=== PATIENT | female | born 1940 | race Caucasian/White ===

== ENCOUNTER 2024-05-27 14:56 | Inpatient (IN) | payer MEDICARE, OTHER, SELFPAY ==
[2024-05-27] VITALS (8 sets, daily range): BP systolic 114–163; BP diastolic 71–94; BMI 32.4
[2024-05-27 09:11] LABS: % Basophils 0.5 % (0-2); % Eosinophils 2.6 % (0-6); % Immature Granulocytes 0.5 % (0-0.5); % Lymphocytes 14.3 % (20.5-51.1); % Monocytes 10.6 % (1.7-9.3); % Neutrophils 71.5 % (42.2-75.2); Absolute Eosinophils 0.2 10^3/uL (0-0.7); Absolute Lymphocytes 1.1 10^3/uL (1.2-3.4); Absolute Monocytes 0.8 10^3/uL (0.1-0.6); Absolute Neutrophils 5.3 10^3/uL (1.4-6.5); Hematocrit 40.3 % (37.0-47.0); Hemoglobin 13.1 g/dL (12.0-16.0); Mean Corp Hgb Conc. 32.5 g/dL (33.0-37.0); Mean Corpuscular Hgb 29.3 pg (27.0-31.0); Mean Corpuscular Volume 90.2 fL (81.0-99.0); Mean Platelet Volume 10.4 fL (7.4-10.4); Nucleated Red Blood Cells % 0 %; Platelet Count 299 10^3/uL (130-400); Red Blood Cell Count 4.47 10^6/uL (4.20-5.40); Red Cell Dist. Width 14.4 % (11.5-14.5); White Blood Cell Count 7.4 10^3/uL (4.8-10.8)
--- NOTE | 2024-05-27 09:15 | ED.GENMED ---
History of Present Illness
<MARIAH Leung - Last Filed: 05/27/24 14:24>
General
Chief Complaint: Chest Problem
Source: patient
Exam Limitations: none
Time Seen by Provider: 05/27/24 09:06
Nursing documentation reviewed up to this point in time: agreed with
History of Present Illness
History of Present Illness:
Patient is a 83-year-old female from [facility] who presents today complaining left-sided chest pain that woke her up prior to arrival. Lasted for 20 minutes. She complained of pain to the left chest and left back. She does have history of
pacemaker AICD. Nurse notes and triage that patient reported the last time this happened this was a loose wire but she does not state this to me.
Patient had no associated shortness of breath with this. She denied nausea vomiting sweating.
She currently is asymptomatic.
Past History
<MARIAH Leung - Last Filed: 05/27/24 14:24>
Past History
ED Past Medical History: Arrthythmia
ED Past Surgical History: None
Social History
Tobacco: Non-smoker
Review of Systems
<MARIAH Leung - Last Filed: 05/27/24 14:24>
Review of Systems
Allergies reviewed?: Yes
All Other Systems: ROS reviewed and negative except as documented in HPI and ROS
Constitutional: Reports no symptoms; Denies fever, fatigue or chills
Respiratory: Denies trouble breathing
Cardiac: Reports chest pain; Denies diaphoresis, palpitations or syncope
ABD/GI: Reports no symptoms
: Reports no symptoms
Musculoskeletal: Reports no symptoms
Skin: Reports no symptoms
Psychiatric: Reports no symptoms
Phy Exam
<MARIAH Leung - Last Filed: 05/27/24 14:24>
General Physical Exam
General Presentation: no apparent distress
General age: appears stated age
General Skin: warm and dry
General Habitus: normal
General Mental: alert
General Hydration: appears well hydrated
Cardiovascular Exam
Cardiovascular Exam: regular rate/rhythm, no murmur and normal peripheral pulses
Pulmonary Exam
Pulmonary Exam: lungs clear and no respiratory distress
Neurological Exam
Neurological Exam: alert and oriented x3
Course
<MRAIAH Leung - Last Filed: 05/27/24 14:24>
Orders/Labs/Results
Orders:
Orders
05/27/24 08:52
Electrocardiogram (*1) Urgent
Reason for Study: Chest Pain
05/27/24 08:53
EKG- Treatment ONCE
05/27/24 08:54
COVID-19 Antigen Urgent
Source: Nasal Swab
Complete Blood Count/With Diff Urgent
Troponin I Urgent
Influenza A+B Rapid Molecular Urgent
OFELIA Source: Nasal Swab
Specimen Description:
05/27/24 09:15
Chest [CR Chest - 2 Views ] Urgent
Comment:
Reason For Exam: cp
05/27/24 09:52
Comprehensive Metabolic Panel Urgent
05/27/24 12:12
Electrocardiogram (*1) Stat
Reason for Study: Other
Other Reason for Exam: chest pain
EKG- Treatment ONCE
05/27/24 12:59
Troponin I Urgent
05/27/24 13:54
Alprazolam [Xanax] 0.25 mg PO NOW STA
Abnormal Lab Results
05/27/24 05/27/24
08:54 09:52
MCHC 32.5 L g/dL
(33.0-37.0)
Absolute Lymphs (auto) 1.1 L 10^3/uL
(1.2-3.4)
Absolute Monos (auto) 0.8 H 10^3/uL
(0.1-0.6)
Lymphocytes % 14.3 L %
(20.5-51.1)
Monocytes % 10.6 H %
(1.7-9.3)
BUN 20 H mg/dl
(7-17)
05/27/24 08:54
05/27/24 09:52
Vital Signs
Initial and Last Documented VS:
Initial Vital Signs
Temp Pulse Resp BP Pulse Ox
98.0 F 87 16 153/82 96
05/27/24 08:41 05/27/24 08:41 05/27/24 08:41 05/27/24 08:41 05/27/24 08:41
Last Documented Vital Signs
Temp Pulse Resp BP Pulse Ox
98.0 F 89 30 153/82 92
05/27/24 08:41 05/27/24 14:00 05/27/24 14:00 05/27/24 08:41 05/27/24 14:00
<Leonard Pascual, DO - Last Filed: 05/27/24 14:22>
Orders/Labs/Results
Orders:
Orders
05/27/24 08:52
Electrocardiogram (*1) Urgent
Reason for Study: Chest Pain
05/27/24 08:53
EKG- Treatment ONCE
05/27/24 08:54
COVID-19 Antigen Urgent
Source: Nasal Swab
Complete Blood Count/With Diff Urgent
Troponin I Urgent
Influenza A+B Rapid Molecular Urgent
OFELIA Source: Nasal Swab
Specimen Description:
05/27/24 09:15
Chest [CR Chest - 2 Views ] Urgent
Comment:
Reason For Exam: cp
05/27/24 09:52
Comprehensive Metabolic Panel Urgent
05/27/24 12:12
Electrocardiogram (*1) Stat
Reason for Study: Other
Other Reason for Exam: chest pain
EKG- Treatment ONCE
05/27/24 12:59
Troponin I Urgent
05/27/24 13:54
Alprazolam [Xanax] 0.25 mg PO NOW STA
Abnormal Lab Results
05/27/24 05/27/24
08:54 09:52
MCHC 32.5 L g/dL
(33.0-37.0)
Absolute Lymphs (auto) 1.1 L 10^3/uL
(1.2-3.4)
Absolute Monos (auto) 0.8 H 10^3/uL
(0.1-0.6)
Lymphocytes % 14.3 L %
(20.5-51.1)
Monocytes % 10.6 H %
(1.7-9.3)
BUN 20 H mg/dl
(7-17)
05/27/24 08:54
05/27/24 09:52
Vital Signs
Initial and Last Documented VS:
Initial Vital Signs
Temp Pulse Resp BP Pulse Ox
98.0 F 87 16 153/82 96
05/27/24 08:41 05/27/24 08:41 05/27/24 08:41 05/27/24 08:41 05/27/24 08:41
Last Documented Vital Signs
Temp Pulse Resp BP Pulse Ox
98.0 F 89 30 153/82 92
05/27/24 08:41 05/27/24 14:00 05/27/24 14:00 05/27/24 08:41 05/27/24 14:00
<MARIAH Leung - Last Filed: 05/27/24 14:24>
*Radiology
Radiology exam reviewed: radiology read reviewed
*Pulse Oximetry
Patient hypoxic: no
*EKG
Interpreted by ED Provider?: Yes
Heart Rate: 82
Rate: normal
Rhythm: sinus
Ischemia: non-specific ST changes
ED Attending Note
<MARIAH Leung - Last Filed: 05/27/24 14:24>
-
Portions of this chart may have been created with voice recognition software.� Occasional wrong word or��sound alike� substitutions may have occurred due to the inherent limitations of voice recognition software.
<Leonard Pascual DO - Last Filed: 05/27/24 14:22>
ED Attending Note
Patient seen and examined by attending physician: Yes
I performed the substantive portion of visit, reviewed & personally made and approve the management plan that is documented in note by myself or LOKI.: Yes
ED Attending Note:
I evaluated the patient bedside. The patient is certain that she was shocked by her AICD as she points to the left anterior chest wall. She has never been shocked before. 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
based in [facility] that was placed at [facility]. Therefore unable to interrogate at this time. Hemodynamically stable.
Discharge Plan
Departure
Patient Disposition: Admit
Date of Disposition: 05/27/24
Time of Disposition: 14:19
Admit to: Telemetry
Admit to doctor: hospitalist
Presentation/result/management discussed w/ accepting MD/DO: Hospitalist
Patient with high blood pressure during this ER visit?: Yes
Condition: Fair
Covid-19: Not Applicable
Discharge Problem:
Chest pain, AICD discharge
Prescriptions:
No Action
carvedilol 6.25 MG tablet
3.125 mg PO BID
aspirin 81 MG tablet,delayed release (DR/EC)
81 mg PO DAILY
rosuvastatin [Crestor] 40 MG tablet
20 mg PO HS
PreserVision AREDS 1 CAP capsule
1 cap PO BID
quetiapine [Seroquel] 25 mg Tablet
25 mg PO BID
acetaminophen [Tylenol] 325 mg Tablet
650 mg PO Q6HPRN PRN (Reason: mild pain)
ipratropium-albuterol [DuoNeb] 0.5 mg-3 mg(2.5 mg base)/3 mL Solution For Nebulization
3 ml INHALATION R Q6HPRN PRN (Reason: sob)
ipratropium-albuterol [DuoNeb] 0.5 mg-3 mg(2.5 mg base)/3 mL Solution For Nebulization
3 ml INHALATION R TID
polyethylene glycol 3350 [Miralax] 17 gram Powder In Packet
17 g PO DAILY
benzonatate 200 mg Capsule
200 mg PO TIDPRN PRN (Reason: cough)
Theragen Tablet
1 tab PO DAILY
alprazolam [Xanax] 0.5 mg Tablet
0.5 mg PO TID
methenamine hippurate [Hiprex] 1 gram Tablet
1 g PO BID
citalopram [Celexa] 20 mg Tablet
20 mg PO DAILY
famotidine [Pepcid] 20 mg Tablet
20 mg PO BID
ascorbic acid (vitamin C) [Vitamin C] 500 mg Tablet
500 mg PO DAILY
bisacodyl [Dulcolax (bisacodyl)] 10 mg Suppository
[address] DAILYPRN PRN (Reason: if no bm aftr mom)
ferrous sulfate 325 mg (65 mg iron) Tablet
325 mg PO DAILY
carbidopa-levodopa 10-100 mg Tablet
1 tab PO HS
carbidopa-levodopa 10-100 mg Tablet
2 tab PO BID
Fleet Enema 19-7 gram/118 mL Enema
[address] DAILYPRN PRN (Reason: if no bm aftr dulolcax)
docusate sodium [Colace] 100 mg Capsule
100 mg PO BID
cranberry 450 mg Tablet
450 mg PO DAILY
Trelegy Ellipta 100-62.5-25 mcg Blister With Device
1 inh INHALATION R DAILY
Blink Tears 0.25 % Drops
1 drp ophthalmic (eye) TID
Rx Instructions:
both eyes
Gemtesa 75 mg Tablet
75 mg PO DAILY
Referrals:
Joon Og DO [Family Provider] -
Interventions
Interventions:
*Risk Screen - Suicide Last Done: 05/27/24 08:41
*General Assessment Last Done: 05/27/24 08:41
*Neglect/Abuse Screening Last Done: 05/27/24 08:41
ED- Fall Risk Assessment Last Done: 05/27/24 08:41
*ED COVID-19 Vaccine History Last Done: 05/27/24 08:51
ED- Cardiac Assessment Last Done: 05/27/24 09:32
ED- Pulmonary Assessment Last Done: 05/27/24 09:32
Discharge Date and Time
Print Language: CAMBODIAN
[2024-05-27 09:31] LABS: COVID-19 Antigen Negative (Negative)
[2024-05-27 10:17] LABS: ALT (SGPT) 12 U/L (0-35); AST (SGOT) 18 U/L (14-36); Albumin 4.4 g/dl (3.5-5.0); Alkaline Phosphatase 91 U/L (38-126); Blood Urea Nitrogen 20 mg/dl (7-17); Calcium 9.6 mg/dl (8.4-10.2); Carbon Dioxide 29 mmol/L (22-30); Chloride 102 mmol/L (98-107); Glucose 97 mg/dl (70-99); Potassium 4.2 mmol/L (3.5-5.1); Sodium 140 mmol/L (135-145); Total Bilirubin 0.3 mg/dl (0.2-1.3); Total Protein 7.2 g/dl (6.3-8.2); eGFR > 60.00
[2024-05-27 10:29] LABS: Troponin I < 0.012 ng/ml
[2024-05-27 13:41] LABS: Troponin I 0.014 ng/ml
[2024-05-27] MEDS: XANAX 0.25 MG PO (14:18)
--- NOTE | 2024-05-27 14:19 | HPS.HSE ---
Family Physician
-
Family Physician: Joon Og,
Chief Complaint
-
Chest Pain
History of Present Illness
83-year-old female with HFrEF s/p AICD, CAD s/p PCI, COPD, GERD, Parkinson's disease, H/O CVA, H/O SBO s/p adhesion lysis that presented to the ED today from [facility] with complaint of left-sided chest pain. Chest pain started this morning
and woke her up prior to arrival, lasted around 20 minutes in total. Pain was most notable in the left side of the chest and at the left back. Nursing notes and triage mention previous instance of similar symptoms that were due to loose AICD
wiring. Denied dyspnea, nausea/vomiting, perspiration. Chest pain had resolved prior to arrival. Upon arrival was hypertensive though AFVSS otherwise. Initial labs unremarkable. Troponin 0.014, initial ECG with atrial sensed and V paced rhythm
without significant ST deviation or other ischemic findings. QTc was prolonged at 505 ms. Chest x-ray without any acute pulmonary processes.
Medical History
Past Medical History
Past Medical History: Reports CAD, CHF, COPD, CVA and GERD
Past Surgical History: Reports Cardiac (Stents), Cholecystectomy and Gynocological (hysterectomy)
Social History
Tobacco: Non-smoker
Alcohol: None
Drug: None
Family History
Family History: Not pertinent
Allergies / Home Medications
Allergies reflects when Allergies were last updated in [facility].
Home Medications with original date entered in [facility]
Allergy/Medication List:
Allergies
Allergy/AdvReac Type Severity Reaction Status Date / Time
codeine Allergy Unknown Verified 10/24/19 17:06
Iodinated Contrast Media Allergy Unknown Verified 10/24/19 17:06
metoclopramide [From Reglan] Allergy Unknown Verified 10/24/19 17:06
Penicillins Allergy Unknown Verified 10/24/19 17:06
Home Medications
aspirin 81 mg tablet,delayed release 81 mg PO DAILY 10/24/19
carvedilol 6.25 mg tablet 3.125 mg PO BID 10/24/19
rosuvastatin 40 mg tablet (Crestor) 20 mg PO HS 10/24/19
vitamins A,C,L-rqzt-ngznyp 4,296 mcg-226 mg-90 mg capsule (PreserVision AREDS) 1 cap PO BID 10/24/19
acetaminophen 325 mg tablet (Tylenol) 650 mg PO Q6HPRN PRN mild pain 05/27/24
alprazolam 0.5 mg tablet (Xanax) 0.5 mg PO TID 05/27/24
ascorbic acid (vitamin C) 500 mg tablet (Vitamin C) 500 mg PO DAILY 05/27/24
benzonatate 200 mg capsule 200 mg PO TIDPRN PRN cough 05/27/24
bisacodyl 10 mg rectal suppository (Dulcolax (bisacodyl)) 10 mg MS DAILYPRN PRN if no bm aftr mom 05/27/24
carbidopa 10 mg-levodopa 100 mg tablet 1 tab PO HS 05/27/24
carbidopa 10 mg-levodopa 100 mg tablet 2 tab PO BID 05/27/24
citalopram 20 mg tablet (Celexa) 20 mg PO DAILY 05/27/24
cranberry fruit 450 mg tablet (cranberry) 450 mg PO DAILY 05/27/24
docusate sodium 100 mg capsule (Colace) 100 mg PO BID 05/27/24
famotidine 20 mg tablet (Pepcid) 20 mg PO BID 05/27/24
ferrous sulfate 325 mg (65 mg iron) tablet 325 mg PO DAILY 05/27/24
fluticasone fur. 100 mcg-umeclid 62.5 mcg-vilant 25 mcg inhalat.powder (Trelegy Ellipta) 1 inh inhalation R DAILY 05/27/24
ipratropium 0.5 mg-albuterol 3 mg (2.5 mg base)/3 mL nebulization soln 3 ml inhalation R Q6HPRN PRN sob 05/27/24
ipratropium 0.5 mg-albuterol 3 mg (2.5 mg base)/3 mL nebulization soln 3 ml inhalation R TID 05/27/24
methenamine hippurate 1 gram tablet 1 g PO BID 05/27/24
polyethylene glycol 3350 17 gram oral powder packet (Miralax) 17 g PO DAILY 05/27/24
polyethylene glycol 400 0.25 % eye drops (Blink Tears) 1 drp ophthalmic (eye) TID both eyes 05/27/24
quetiapine 25 mg tablet (Seroquel) 25 mg PO BID 05/27/24
sodium phosphates 19 gram-7 gram/118 mL enema (Fleet Enema) 118 ml MS DAILYPRN PRN if no bm aftr dulolcax 05/27/24
therapeutic multivitamin 1 tab PO DAILY 05/27/24
vibegron 75 mg tablet (Gemtesa) 75 mg PO DAILY 05/27/24
Review of Systems
-
History Source: Patient
A 12 point ROS was completed and negative except as noted: Yes
Constitutional: Reports No Symptoms
EENT: Reports No Symptoms
Respiratory: Reports No Symptoms
Cardiac: Reports See HPI
Abdomen/GI: Reports No Symptoms
: Reports No Symptoms
Musculoskeletal: Reports No Symptoms
Skin: Reports No Symptoms
Neurological: Reports No Symptoms
Endocrine: Reports No Symptoms
Hematologic/Lymphatic: Reports No Symptoms
Psych: Reports No Symptoms
Physical Exam
Vital Signs
Vital Signs
Temp Pulse Resp BP Pulse Ox
98.0 F 89 30 153/82 92
05/27/24 08:41 05/27/24 14:00 05/27/24 14:00 05/27/24 08:41 05/27/24 14:00
Physical Exam
General: Well Developed, No Apparent Distress and Comfortable
HEENT: NormoCephalic, Anicteric and Moist mucous membranes
Respiratory: Clear and Non Labored Respirations; No Accessory Resp Muscle Use
Cardiac: S1/S2 and Regular Rhythm; No Murmur, Rub, Gallop, Peripheral Edema or JVD
GI: Soft, Non Tender, Non Distended and Normal Bowel Sounds
Musculoskeletal: No Clubbing and No Cyanosis
Skin: Warm and Dry; No Rash
Neuro: AO x 3 and Nonfocal/grossly intact
Psych: Calm
Laboratory Results
-
05/27/24 08:54
05/27/24 09:52
Laboratory Results
Total Bilirubin 0.3 mg/dl (0.2-1.3) 05/27/24 09:52
AST 18 U/L (14-36) 05/27/24 09:52
ALT 12 U/L (0-35) 05/27/24 09:52
Alkaline Phosphatase 91 U/L (38-126) 05/27/24 09:52
Troponin I 0.014 ng/ml 05/27/24 12:59
Data Reviewed
-
Lab Data: Labs Reviewed by me, Discussed with Physician (Cardiology) and Discussed with Patient
Impression/Plan
-
#Chest pain
#Concern for AICD firing
-Had similar symptoms in past due to loose AICD wiring
-Chest pain resolved TELLER VAULT, initial troponin negative as was ECG
-Low suspicion for acute coronary syndrome at this time
-Will trend troponin 2 more times with serial ECG for completeness
-Cardiology consult, will need AICD interrogation
-Admission to IVU, monitor on telemetry
#QTc prolongation
-ECG with QTc at 505 ms; Home meds include quetiapine and citalopram
-Only mildly elevated, will continue with quetiapine and citalopram and monitor very closely
-Plan to stop quetiapine and escitalopram if QTc prolongs further
-Electrolyte goals K >4 and magnesium >2
-Monitor on telemetry
#HFrEF, unspecified EF
-Per history, no recent echocardiograms; unclear etiology though likely ischemic
-GDMT with carvedilol; on aspirin and statin; not currently on standing diuretics
-Status post AICD as above for chronically depressed LVEF, primary prevention
-Appears fairly euvolemic at this time the will add on BNP to further assess
#CAD s/p PCI
-Home medications include aspirin and statin
-Presented with chest pain though initial troponin negative
-Suspicion fairly low for ACS, see above
#COPD
-Not currently on supplemental oxygen
-Home medications include Trelegy and DuoNeb PRN
#Parkinson's disease
-Home medications include Sinemet
-Also on quetiapine, Xanax, citalopram
#GERD
-Home medications include famotidine twice daily
#H/O CVA
-Home medications include aspirin and statin
-No known history of AF/AFL
-Likely cerebrovascular in nature
#H/O SBO s/p lysis of adhesions
DVT prophylaxis: Lovenox
Diet: Regular
CODE STATUS: Full code. Patient mentions that previously she was DO NOT INTUBATE but okay for chest compressions. I spoke to her about how there is a dissonance between these 2 actions as any person that has cardiac arrest and required chest
compressions subsequently has mechanical ventilation. She agrees to full code for now while she further considers her long-term options
Spoke with cardiology and the ED physician
[2024-05-27] MEDS: SINEMET 10-100 1 TABLET PO ×2 (15:29→22:16)
--- NOTE | 2024-05-27 15:57 | CON.CAR ---
Consultation
Consultation Request
Date/Time Consultation Requested: May 27 2024
Date/Time Consultation Performed: May 27 2024
Requesting Provider: Dr Good
Performing Provider: Dr Marlow
Reason for Consultation: ICD eval / chest pain
Medical History
-
Chief Complaint: Chest pain
History of Present Illness:
She is an 83 you with PMH of CM, CAD s/p PCI, ICD (Jevon), COPD, GERD, Parkinsons, CVA with left hemiparesis who presented after waking up with left sided chest pain and the feeling that she had an ICD shock. She described the pain at that time of
the event as significant and sharp. She has never had the ICD fire before. She states her EP is Dr Dee and her primary chiropractor assistant is Dr Ayers out of [facility].
She states her chest is sore. In ER her troponin and EKG were without ischemic changes. Chest xray was without acute process. Her QTc was 505 msec. There are no records to review from her chiropractor assistant or about her device and it was not interrogated
by ER staff in ER as it is a Jevon device. She denies a hx of MT
Past Medical History:
CM, unknown EF
CAD s/p PCI X 3 stents
ICD (Jevon)
COPD
Parkinsons Disease
CVA with residual left sided weakness
GERD
TIAs
Social History
Tobacco: Former Smoker (Quit 20 yrs ago)
Alcohol: Occasional (Rare wine)
Drug: None
Living: Retirement ([facility] )
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
Family History
Family History: Reviewed & Not Pertinent
Allergies / Home Medications
Allergy/AdvReac Type Severity Reaction Status Date / Time
codeine Allergy Unknown Verified 10/24/19 17:06
Iodinated Contrast Media Allergy Unknown Verified 10/24/19 17:06
metoclopramide [From Reglan] Allergy Unknown Verified 10/24/19 17:06
Penicillins Allergy Unknown Verified 10/24/19 17:06
�Medication �Instructions �Recorded �Confirmed �Type
aspirin 81 mg tablet,delayed 81 mg PO DAILY 10/24/19 05/27/24 History
release
carvedilol 6.25 mg tablet 3.125 mg PO BID 10/24/19 05/27/24 History
rosuvastatin 40 mg tablet (Crestor) 20 mg PO HS 10/24/19 05/27/24 History
vitamins A,C,E-exsc-awspqy 4,296 1 cap PO BID 10/24/19 05/27/24 History
mcg-226 mg-90 mg capsule
(PreserVision AREDS)
acetaminophen 325 mg tablet 650 mg PO Q6HPRN PRN mild pain 05/27/24 05/27/24 History
(Tylenol)
alprazolam 0.5 mg tablet (Xanax) 0.5 mg PO TID 05/27/24 05/27/24 History
ascorbic acid (vitamin C) 500 mg 500 mg PO DAILY 05/27/24 05/27/24 History
tablet (Vitamin C)
benzonatate 200 mg capsule 200 mg PO TIDPRN PRN cough 05/27/24 05/27/24 History
bisacodyl 10 mg rectal suppository 10 mg [place] DAILYPRN PRN if no bm 05/27/24 05/27/24 History
(Dulcolax (bisacodyl)) aftr mom
carbidopa 10 mg-levodopa 100 mg 1 tab PO HS 05/27/24 05/27/24 History
tablet
carbidopa 10 mg-levodopa 100 mg 2 tab PO BID 05/27/24 05/27/24 History
tablet
citalopram 20 mg tablet (Celexa) 20 mg PO DAILY 05/27/24 05/27/24 History
cranberry fruit 450 mg tablet 450 mg PO DAILY 05/27/24 05/27/24 History
(cranberry)
docusate sodium 100 mg capsule 100 mg PO BID 05/27/24 05/27/24 History
(Colace)
famotidine 20 mg tablet (Pepcid) 20 mg PO BID 05/27/24 05/27/24 History
ferrous sulfate 325 mg (65 mg 325 mg PO DAILY 05/27/24 05/27/24 History
iron) tablet
fluticasone fur. 100 mcg-umeclid 1 inh inhalation R DAILY 05/27/24 05/27/24 History
62.5 mcg-vilant 25 mcg
inhalat.powder (Trelegy Ellipta)
ipratropium 0.5 mg-albuterol 3 mg 3 ml inhalation R Q6HPRN PRN sob 05/27/24 05/27/24 History
(2.5 mg base)/3 mL nebulization
soln
ipratropium 0.5 mg-albuterol 3 mg 3 ml inhalation R TID 05/27/24 05/27/24 History
(2.5 mg base)/3 mL nebulization
soln
methenamine hippurate 1 gram tablet 1 g PO BID 05/27/24 05/27/24 History
polyethylene glycol 3350 17 gram 17 g PO DAILY 05/27/24 05/27/24 History
oral powder packet (Miralax)
polyethylene glycol 400 0.25 % eye 1 drp ophthalmic (eye) TID both 05/27/24 05/27/24 History
drops (Blink Tears) eyes
quetiapine 25 mg tablet (Seroquel) 25 mg PO BID 05/27/24 05/27/24 History
sodium phosphates 19 gram-7 118 ml [place] DAILYPRN PRN if no bm 05/27/24 05/27/24 History
gram/118 mL enema (Fleet Enema) aftr dulolcax
therapeutic multivitamin 1 tab PO DAILY 05/27/24 05/27/24 History
vibegron 75 mg tablet (Gemtesa) 75 mg PO DAILY 05/27/24 05/27/24 History
Review of Systems
-
History Source: Patient
All other systems: Negative unless noted
Cardiac: Chest Pain
Physical Exam
Vital Signs
Temp Pulse Resp BP Pulse Ox
98.0 F 89 30 153/82 92
05/27/24 08:41 05/27/24 14:00 05/27/24 14:00 05/27/24 08:41 05/27/24 14:00
Physical Exam
General: No acute distress, Awake and alert
Neck: Negative JVD
Heart: Regular, Negative S3 positive S1/S2, Negative S4, No murmur
Lungs: CTA b/l, negative wheezes/rales/rhonchi
Abd: Positive BS, NT/ND, neg rebound/rigidity/guarding
Ext: Negative cyanosis/clubbing/edema
Neuro: left sided weakness, chronic
Lab Results
05/27/24 08:54
05/27/24 09:52
Troponin I 0.014 ng/ml 05/27/24 12:59
Impression / Plan
-
.
EP is Dr Dee
Primary chiropractor assistant is Dr Ayers out of [facility].
Plan:
Chest pain, atypical
Concern for potential ICD defib
Hx CM, unknown EF
Hx CAD s/p PCI X 3 stents
Hx ICD (Jevon)
COPD
Parkinsons Disease
Hx CVA with residual left sided weakness
GERD
TIAs
Plan:
Cont to trend troponins X 3 if negative can stop
Check Echo
Obtain records from outside chiropractor assistant Dr Ayers
Monitor tele and EKG
Follow QTc
Interrogate PPM once records obtained from chiropractor assistant office.
Unable to find contact for [employer]
She appears euvolemic.
Monitor Is and Os and daily wts. BNP was not elevated.
She was not on diuretics
Cont ASA, Coreg and statin for hx of CABG
Cont supportive care and pulm toilet
Reviewed with primary service.
Data Reviewed
-
EKG: Tracing Personally Visualized and interpreted
Old Records: Requested
--- NOTE | 2024-05-27 17:32 | PTCARENOTE ---
Rec'd pt from ED. Pt is AOX3. Tele- V-paced. Pt currently has no complaints of pain. Assessment completed as documented. Skin intact. Pt reports having a mechanical diet at [facility]. Florentino RODRIGUEZ aware and diet order changed to moist and
minced. Pt reports only using a WC to get around. Oriented pt to room. Currently in bed; call españa w/in reach.
[2024-05-27] MEDS: XANAX 0.5 MG PO ×2 (17:57→22:16)
[2024-05-27] MEDS: SINEMET 10-100 2 TABLET PO (17:57)
[2024-05-27] MEDS: LOVENOX 40 MG SC (17:57)
[2024-05-27 18:01] LABS: NT-proBNP 369 pg/ml
[2024-05-27] MEDS: DUONEB 3 ML INH (19:16)
[2024-05-27] MEDS: COLACE 100 MG PO (19:37)
[2024-05-27] MEDS: COREG 3.125 MG PO (19:37)
[2024-05-27] MEDS: SEROQUEL 25 MG PO (19:38)
[2024-05-27] MEDS: HIPREX 1 GRAM PO (19:38)
[2024-05-27] MEDS: PEPCID 20 MG PO (19:38)
[2024-05-27] MEDS: OCUVITE SOFTGEL 1 CAP PO (19:38)
[2024-05-27 20:29] LABS: Troponin I 0.018 ng/ml
--- NOTE | 2024-05-27 22:00 | PTCARENOTE ---
Rec'd pt at change of shift. PT AAO*3, VSS, and Vpaced on TELE monitor. Pt reports minimal pain at pacemaker site, but declines Tylenol. Pt agreed not ambulate without staff assistance and bed alarm active for pt saftey. Pt updated on plan of
care, and denies any questions or concerns. Pt resting with call españa in reach. Plan of care ongoing.
[2024-05-27] MEDS: CRESTOR 20 MG PO (22:16)
[2024-05-28 03:42] VITALS: BP 112/61
[2024-05-28 04:12] VITALS: BMI 31.1
[2024-05-28] MEDS: TYLENOL 650 MG PO ×2 (04:14→15:12)
[2024-05-28 04:48] LABS: Hematocrit 35.8 % (37.0-47.0); Mean Corp Hgb Conc. 33.5 g/dL (33.0-37.0); Mean Corpuscular Hgb 29.5 pg (27.0-31.0); Mean Platelet Volume 10.2 fL (7.4-10.4); Platelet Count 252 10^3/uL (130-400); Red Blood Cell Count 4.07 10^6/uL (4.20-5.40); Red Cell Dist. Width 14.2 % (11.5-14.5); White Blood Cell Count 6.4 10^3/uL (4.8-10.8)
[2024-05-28 04:53] LABS: Blood Urea Nitrogen 18 mg/dl (7-17); Calcium 9.4 mg/dl (8.4-10.2); Carbon Dioxide 23 mmol/L (22-30); Chloride 105 mmol/L (98-107); Estimated Creatinine Clearance 58 ml/min; Glucose 97 mg/dl (70-99); Potassium 4.1 mmol/L (3.5-5.1); Sodium 138 mmol/L (135-145); eGFR > 60.00
[2024-05-28 05:05] LABS: Troponin I 0.017 ng/ml
[2024-05-28] MEDS: DUONEB 3 ML INH ×3 (07:38→18:01)
[2024-05-28] MEDS: HIPREX 1 GRAM PO ×2 (08:26→20:33)
[2024-05-28] MEDS: SEROQUEL 25 MG PO ×2 (08:27→20:31)
[2024-05-28] MEDS: XANAX 0.5 MG PO ×3 (08:27→21:41)
[2024-05-28] MEDS: OCUVITE SOFTGEL 1 CAP PO ×2 (08:27→20:33)
[2024-05-28] MEDS: COLACE 100 MG PO ×2 (08:27→20:31)
[2024-05-28] MEDS: COREG 3.125 MG PO ×2 (08:27→20:31)
[2024-05-28 08:28] VITALS: BP 154/82
[2024-05-28] MEDS: FEOSOL 325 MG PO (08:29)
[2024-05-28] MEDS: ASPIR LOW (ENTERIC COATED) 81 MG PO (08:29)
[2024-05-28] MEDS: THERAGRAN 1 TABLET PO (08:30)
[2024-05-28] MEDS: MIRALAX 17 GRAMS PO (08:30)
[2024-05-28] MEDS: VITAMIN C 500 MG PO (08:30)
[2024-05-28] MEDS: PEPCID 20 MG PO ×2 (08:30→20:31)
[2024-05-28] MEDS: CELEXA 20 MG PO (08:30)
--- NOTE | 2024-05-28 08:57 | W.PN.CARDCBS ---
Today's Communication / Plan
-
Troponins negative. No evidence of ventricular tachycardia on telemetry monitoring. Continue telemetry
Check EKG today, 05/28/2024, follow QTc
Echo pending
Obtain records from outside supervisor bindery Dr Ayers
Interrogate PPM once records obtained from supervisor bindery office.
Unable to find contact for [email or web address]
She remains euvolemic.
Monitor Is and Os and daily wts. BNP was not elevated.
She was not on diuretics as outpatient
Cont ASA, Coreg and statin for hx of CABG
Cont supportive care and pulm toilet
Impression / Plan
-
.
EP is Dr Dee
Primary supervisor bindery is Dr Ayers out of [facility].
Plan:
Chest pain, atypical, resolved
Concern for potential ICD defib
Hx CM, unknown EF
Hx CAD s/p PCI X 3 stents
Hx ICD (Jevon)
COPD
Parkinsons Disease
Hx CVA with residual left sided weakness
GERD
TIAs
Plan:
Troponins negative. No evidence of ventricular tachycardia on telemetry monitoring. Continue telemetry
Check EKG today, 05/28/2024, follow QTc
Echo pending
Obtain records from outside supervisor bindery Dr Ayers
Interrogate PPM once records obtained from supervisor bindery office.
Unable to find contact for [email or web address]
She remains euvolemic.
Monitor Is and Os and daily wts. BNP was not elevated.
She was not on diuretics as outpatient
Cont ASA, Coreg and statin for hx of CABG
Cont supportive care and pulm toilet
Reviewed with nursing
Called family yesterday, went to voicemail
Progress Note - Middle Card Tender
Subjective
Date of Service: May 28, 2024
Patient seen and examined. No chest pain or shortness of breath
Objective
Labs:
05/28/24 03:59
05/28/24 03:59
Labs
Hgb 12.0 g/dL (12.0-16.0) 05/28/24 03:59
Hct 35.8 % (37.0-47.0) L 05/28/24 03:59
Plt Count 252 10^3/uL (130-400) 05/28/24 03:59
Sodium 138 mmol/L (135-145) 05/28/24 03:59
Potassium 4.1 mmol/L (3.5-5.1) 05/28/24 03:59
BUN 18 mg/dl (7-17) H 05/28/24 03:59
Creatinine 0.6 mg/dL (0.6-1.0) 05/28/24 03:59
Glucose 97 mg/dl (70-99) 05/28/24 03:59
Troponins
05/27/24 05/27/24 05/27/24
08:54 12:59 17:09
Troponin I < 0.012 0.014 Cancelled
05/27/24 05/27/24 05/28/24
19:57 23:09 03:59
Troponin I 0.018 D Cancelled 0.017
Vital Signs and I&O:
Vital Signs
Temp Pulse Resp BP Pulse Ox
97.6 F 85 20 154/82 94
05/28/24 08:34 05/28/24 08:28 05/28/24 08:34 05/28/24 08:28 05/28/24 08:34
Vital Signs
Temp Pulse Resp BP Pulse Ox
97.6 F 85 20 154/82 94
05/28/24 08:34 05/28/24 08:28 05/28/24 08:34 05/28/24 08:28 05/28/24 08:34
Intake & Output
05/26/24 05/27/24 05/28/24 05/29/24
06:59 06:59 06:59 06:59
Intake Total 300 / 300
Output Total 850 / 850
Balance -550 / -550
Physical Exam
Physical Exam
General: No acute distress, AAOX3
Neck: Negative JVD
Heart: Regular, Negative S3 positive S1/S2, Negative S4, No murmur
Lungs: CTA b/l, negative wheezes/rales/rhonchi
Abd: Positive BS, NT/ND, neg rebound/rigidity/guarding
Ext: Negative cyanosis/clubbing/edema
Neuro: Chronic left-sided weakness
[2024-05-28] MEDS: SINEMET 10-100 2 TABLET PO ×2 (09:25→14:41)
--- NOTE | 2024-05-28 10:32 | PTCARENOTE ---
Pt complaining of pain in L knee. Florentino RODRIGUEZ aware and orders placed. Pt in for L knee xray.
--- NOTE | 2024-05-28 10:47 | W.PN.HOSP.TC ---
Today's Communication/Plan
-
Obtain records from primary respiratory director
Plan for pacemaker interrogation
Echo and MSK US
Monitor QTc
As needed analgesics
Assessment / Plan
Assessment / Plan
#Chest pain
#Concern for AICD firing
-Had similar symptoms in past due to loose AICD wiring
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
-Low suspicion for acute coronary syndrome at this time
-Will trend troponin 2 more times with serial ECG for completeness
-Placed records request for Dr. Ayers, continue on telemetry
-Plan for interrogation when contact info found
-Morphine for associated pain
-Follow-up echo and MSK US
#Left knee pain and subjective swelling
-No recent falls, patient states her knee is painful and swollen
-Does not appear very swollen to me, pain likely related to radiculopathy
-Ordering x-ray of the left knee for completeness
#QTc prolongation
-ECG with QTc at 505 ms; Home meds include quetiapine and citalopram
-Only mildly elevated, will continue with quetiapine and citalopram and monitor very closely
-Plan to stop quetiapine and escitalopram if QTc prolongs further
-Electrolyte goals K >4 and magnesium >2
-Monitor on telemetry, ECG daily
#HFrEF, unspecified EF
-Per history, no recent echocardiograms; unclear etiology though likely ischemic
-GDMT with carvedilol; on aspirin and statin; not currently on standing diuretics
-Status post AICD as above for chronically depressed LVEF, primary prevention
-Appears fairly euvolemic at this time the will add on BNP to further assess
#CAD s/p PCI x 3
-Home medications include aspirin and statin
-Presented with chest pain though initial troponin negative
-Suspicion fairly low for ACS, see above
#COPD
-Not currently on supplemental oxygen
-Home medications include Trelegy and DuoNeb PRN
#Parkinson's disease
#Behavioral disturbance
-Home medications include Sinemet
-Also on quetiapine, Xanax, citalopram
#GERD
-Home medications include famotidine twice daily
#H/O CVA with left-sided deficits
-Home medications include aspirin and statin
-No known history of AF/AFL
-Likely cerebrovascular in nature
#H/O SBO s/p lysis of adhesions
#H/O LLE radiculopathy
DVT prophylaxis: Lovenox
Diet: Bite sized
CODE STATUS: Full code
Anticipated Discharge: > 48 hours
Subjective/Interval History
-
Date of Service: May 28, 2024
Seen and examined at the bedside. No acute events reported overnight. AFVSS this morning
Complains of left sciatic pain, some subjective knee swelling. Still has some tenderness to left chest wall
Denies dyspnea, fevers or chills, chest tightness
Objective Data
-
Labs:
Laboratory Results
05/28/24
03:59
WBC 6.4
Hgb 12.0
Hct 35.8 L
Plt Count 252
Sodium 138
Potassium 4.1
Chloride 105
Carbon Dioxide 23
BUN 18 H
Creatinine 0.6
Glucose 97
Calcium 9.4
Vital Signs:
Vital Signs
Temp Pulse Resp BP Pulse Ox
97.6 F 85 20 154/82 94
05/28/24 08:34 05/28/24 08:28 05/28/24 08:34 05/28/24 08:28 05/28/24 08:34
I&O
05/27/24 05/28/24 05/29/24
06:59 06:59 06:59
Intake Total 300 / 300
Output Total 850 / 850 600 / 600
Balance -550 / -550 -600 / -600
Review of Systems
-
History Source: Patient
All other systems: Reviewed and negative
Physical Exam
-
General: Well Developed, No Apparent Distress and Obese
HEENT: Normocephalic, Atraumatic and Moist Mucous Membranes
Respiratory: Clear to Auscultation and Non Labored Respirations
Cardiac: Regular Rhythm and S1/S2; Negative Murmur, Rub or Gallop
GI: Soft, Nontender, Nondistended and Normal Bowel Sounds
Musculoskeletal: No Clubbing, No Cyanosis and No Edema
Skin: Warm, Dry and Normal Turgor; Negative Rash
Neuro: AO x 3, Tremors, Central Nerve's Intact and Other (Chronic left-sided deficits, no new FND)
Psych: Calm
Data Reviewed
-
Labs: Labs Reviewed by me and Discussed with Physician (Cardiology)
[2024-05-28] MEDS: NSS (PRESERVATIVE FREE) 10 ML IV (11:09)
[2024-05-28] MEDS: PROTONIX IV 40 MG IV (11:09)
[2024-05-28 11:14] VITALS: BP 140/67
[2024-05-28 15:11] VITALS: BP 134/74
[2024-05-28] MEDS: LOVENOX 40 MG SC (17:08)
[2024-05-28 19:35] VITALS: BP 112/78
[2024-05-28] MEDS: CRESTOR 20 MG PO (21:41)
[2024-05-28] MEDS: SINEMET 10-100 1 TABLET PO (21:42)
[2024-05-28 23:07] VITALS: BP 125/68
[2024-05-29 03:20] VITALS: BP 125/66
[2024-05-29 03:21] VITALS: BMI 30.4
[2024-05-29 03:59] LABS: % Basophils 0.8 % (0-2); % Eosinophils 2.4 % (0-6); % Immature Granulocytes 0.3 % (0-0.5); % Lymphocytes 21.5 % (20.5-51.1); % Monocytes 11.4 % (1.7-9.3); % Neutrophils 63.6 % (42.2-75.2); Absolute Basophils 0.1 10^3/uL (0-0.2); Absolute Eosinophils 0.2 10^3/uL (0-0.7); Absolute Lymphocytes 1.4 10^3/uL (1.2-3.4); Absolute Monocytes 0.8 10^3/uL (0.1-0.6); Absolute Neutrophils 4.2 10^3/uL (1.4-6.5); Hematocrit 39.3 % (37.0-47.0); Hemoglobin 12.6 g/dL (12.0-16.0); Mean Corp Hgb Conc. 32.1 g/dL (33.0-37.0); Mean Corpuscular Hgb 28.7 pg (27.0-31.0); Mean Corpuscular Volume 89.5 fL (81.0-99.0); Nucleated Red Blood Cells % 0 %; Platelet Count 297 10^3/uL (130-400); Red Blood Cell Count 4.39 10^6/uL (4.20-5.40); Red Cell Dist. Width 14.3 % (11.5-14.5); White Blood Cell Count 6.6 10^3/uL (4.8-10.8)
[2024-05-29 04:21] LABS: Blood Urea Nitrogen 20 mg/dl (7-17); Calcium 9.9 mg/dl (8.4-10.2); Carbon Dioxide 28 mmol/L (22-30); Chloride 101 mmol/L (98-107); Estimated Creatinine Clearance 38 ml/min; Glucose 106 mg/dl (70-99); Potassium 4.1 mmol/L (3.5-5.1); Sodium 138 mmol/L (135-145); eGFR > 60.00
[2024-05-29 04:29] VITALS: BMI 30.4
[2024-05-29] MEDS: DUONEB 3 ML INH ×3 (07:04→19:27)
[2024-05-29 08:10] VITALS: BP 133/72
[2024-05-29] MEDS: THERAGRAN 1 TABLET PO (08:58)
[2024-05-29] MEDS: COLACE 100 MG PO ×2 (08:58→19:54)
[2024-05-29] MEDS: ASPIR LOW (ENTERIC COATED) 81 MG PO (08:58)
[2024-05-29] MEDS: FEOSOL 325 MG PO (08:58)
[2024-05-29] MEDS: COREG 3.125 MG PO ×2 (08:58→19:54)
[2024-05-29] MEDS: OCUVITE SOFTGEL 1 CAP PO ×2 (08:58→19:56)
[2024-05-29] MEDS: HIPREX 1 GRAM PO ×2 (08:58→19:56)
[2024-05-29] MEDS: SINEMET 10-100 2 TABLET PO ×2 (08:58→14:23)
[2024-05-29] MEDS: SEROQUEL 25 MG PO ×2 (08:59→19:56)
[2024-05-29] MEDS: XANAX 0.5 MG PO ×3 (08:59→22:20)
[2024-05-29] MEDS: PEPCID 20 MG PO (08:59)
[2024-05-29] MEDS: NSS (PRESERVATIVE FREE) 10 ML IV (08:59)
[2024-05-29] MEDS: MIRALAX 17 GRAMS PO (08:59)
[2024-05-29] MEDS: CELEXA 20 MG PO (08:59)
[2024-05-29] MEDS: PROTONIX IV 40 MG IV (08:59)
[2024-05-29] MEDS: VITAMIN C 500 MG PO (08:59)
[2024-05-29] MEDS: FLUSH (NSS) 2 FLUSH IV (09:05)
--- NOTE | 2024-05-29 09:12 | W.PN.CARDCBS ---
Addendum entered and electronically signed by Edil Marlow DO 05/29/24 15:01:
I saw and examined the patient.
The [employer] Wireman's note was reviewed and I agree with the note.
Comment:
Plan:
Multiple phone calls made both the companies and to outpatient office to try to get records and try to have a rep, for pacer interrogation for possible ICD shock.
Rep will be coming in the next 24 hours, likely tomorrow.
Discharge patient after pacer interrogation
Echo pending
Obtain outpatient records
Continue tele status.
Outpt follow up with her outside supervisor fish hatchery.
Original Note:
Today's Communication / Plan
-
63 minutes in face to face and non face to face time, calling multiple offices and companies to try and arrange for device check for patient that follows at [facility] for cardiology and was brought to [facility] from her long-term residence at [facility] for
possible ICD shock
If we cannot get a rep to check to device then pt can be d/c'd and follow up with Dr. Dee as an outpatient for a device check
Impression / Plan
-
PCP: Dr. Joon Og
EP: Dr Dee [facility],
Primary supervisor fish hatchery: Dr Ayers [facility]
Impression:
Chest pain, atypical, resolved
Concern for potential ICD defib
s/p Jevon ([employer]) AICD
device implanted elsewhere and followed by Dr. Dee at [facility]
Hx CM, unknown EF
Hx CAD s/p PCI X 3 stents
COPD
Parkinson's Disease
Hx CVA with residual left sided weakness
GERD
TIAs
Echo 05/29/24: Study pending
Plan:
-Patient had a Jevon, now owned by [employer], AICD placed years ago and has had several generator changes with the most recent being performed by Dr. Dee within the last 5 years and patient recalls that she was told that no additional Jevon
device changes and her next device would have to be a new brand. Exhaustive internet search for Jevon was unhelpful because there is a physician group name [facility] [facility] in [place] and they have nothing to do with devices. Called Dr. Adrian's office and
was told that patient was in their office and had a device check 01/17/24. [address] Dee's office for the Jevon phone number and ended up getting the [employer] [facility] group number which I realized when they picked up. In to talk to patient and she
has no phone numbers to reach [employer]. Patient reports she stood in front of her remote reader after she awoke with pain and it went from green to red which is apparently a sign that something is wrong with the device. Called back to Dr. Dee's
office again and they were able to find additional phone numbers for me that I called including Paul Vanegas at [phone] and left a message asking for a call back because he might be a device rep. Also called Kiera at [phone] and that
line was no longer in service. Called Heber at [phone] and it was the [employer] main number and no one was available to talk, but I left a message asking for a call back.
-Patient has not had any additional pains like she had prior to admission.
-Tele reviewed by me shows a couplet and maybe a 6 beat run of NSVT although rate is slow.
-Potassium 4.1 and magnesium 2.0 05/28/24 and 05/29/24
-Troponin serially normal
-EF unknown
-Patient was not taking a loop diuretic prior to admission. pro-BNP 369 and no evidence of acute HF on CXR
-Await additional records from Dr. Dee's office along with eventual device check
-Echo ordered
-Outpatient dose of Coreg 3.125 mg twice daily has been continued
Progress Note - Manager Union
Subjective
Date of Service: May 29, 2024
Feels well, denies recurrent pain
Objective
Labs:
05/29/24 03:33
05/29/24 03:33
Labs
Hgb 12.6 g/dL (12.0-16.0) 05/29/24 03:33
Hct 39.3 % (37.0-47.0) 05/29/24 03:33
Plt Count 297 10^3/uL (130-400) 05/29/24 03:33
Sodium 138 mmol/L (135-145) 05/29/24 03:33
Potassium 4.1 mmol/L (3.5-5.1) 05/29/24 03:33
BUN 20 mg/dl (7-17) H 05/29/24 03:33
Creatinine 0.9 mg/dL (0.6-1.0) 05/29/24 03:33
Glucose 106 mg/dl (70-99) H 05/29/24 03:33
Troponins
05/27/24 05/27/24 05/27/24
08:54 12:59 17:09
Troponin I < 0.012 0.014 Cancelled
05/27/24 05/27/24 05/28/24
19:57 23:09 03:59
Troponin I 0.018 D Cancelled 0.017
Vital Signs and I&O:
Vital Signs
Temp Pulse Resp BP Pulse Ox
98.3 F 82 20 133/72 94
05/29/24 08:09 05/29/24 08:13 05/29/24 08:13 05/29/24 08:10 05/29/24 08:13
Vital Signs
Temp Pulse Resp BP Pulse Ox
98.3 F 82 20 133/72 94
05/29/24 08:09 05/29/24 08:13 05/29/24 08:13 05/29/24 08:10 05/29/24 08:13
Intake & Output
0105/28/24 05/29/24 05/30/24
06:59 06:59 06:59 06:59
Intake Total 300 / 300 500 / 500
Output Total 850 / 850 600 / 600
Balance -550 / -550 -100 / -100
Physical Exam
Physical Exam
General: NAD. AAOX3
HEENT: EOMI, MMM
Heart: Paced on tele
Lungs: RA. No audible wheeze
Ext: No edema B/L
--- NOTE | 2024-05-29 09:20 | PTCARENOTE ---
The patient is aaox3, VVS, 100% v-paced on the monitor. She has no complaints of pain at this moment. She is anxious this morning and is repeatedly stating that Dr. Ayers put in her device. In addition, she kept describing how sharp the pain was
when her device went off and that the pain shot straight down her left arm.
--- NOTE | 2024-05-29 11:09 | W.PN.UPDATE ---
Update Note
Progress Note Update
Got a call from Cedric, , who tells me that Cristine ginny Escoto was going to come and check patient's device today, but is no longer able to do so and there is no one else that is anywhere remotely close to come and check patient's device.
Will consider d/c back to facility for device check in Dr. Dee's office tomorrow or have Jevon rep come and check device at the longterm tomorrow. Will ask patient if this is acceptable.
[2024-05-29 11:29] VITALS: BP 116/53
--- NOTE | 2024-05-29 12:29 | PTCARENOTE ---
Received the patient from the clinical laboratory technician. The patient is aaox3, vss, NSR with a 1st degree AVB and a prolong Qt (0.44) is noted on monitor. He ambulated to the chair without difficulty.
--- NOTE | 2024-05-29 14:09 | CARDSERVLU ---
Echocardiogram with [facility] completed after protocol screening completed. Allergies verified.
Patent IV site: _Rt FA____
IV site flushed with 0.9% NaCl pre and post administration.
Diluted bolus method utilized to enhance visualization of ventricular malcolm.
Total volume given: _2.0___ mL
Patient tolerated all procedures well without complications.
--- NOTE | 2024-05-29 15:12 | CM ---
spoke to pt in room, she is prev indep, lives at [facility] in assist living. she would like to return there when medically stable.
[2024-05-29 15:39] VITALS: BP 110/52
[2024-05-29] MEDS: LOVENOX 40 MG SC (17:09)
--- NOTE | 2024-05-29 18:08 | W.PN.HOSP.TC ---
Today's Communication/Plan
-
Assessment / Plan
Assessment / Plan
Gen-AAOx3, NAD
HEENT-NC, AT, anicteric, clear oral mm
Neck-supple
CV-reg, no M, +S1/S2
Lungs-clear B/L
Abd-soft, NT, ND
Musculoskeletal-no edema, no deformity
Skin-warm and dry
Neuro-grossly non-focal
Psych-calm, cooperative
#Concern for AICD firing
-Follows with Dr. Dee at [facility]
-Patient reports sudden onset left chest pain, felt like a shock or hard kick
-Had similar symptoms in past due to loose AICD wiring
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
-Low suspicion for acute coronary syndrome at this time
-Cardiology following, attempting to get ICD rep to evaluate, will follow-up
-Placed records request for Dr. Ayers, continue on telemetry
-Morphine for associated pain
-Echocardiogram shows normal structure and function
#Left knee pain and subjective swelling
-No recent falls, patient states her knee is painful and swollen
-Does not appear very swollen to me, pain likely related to radiculopathy
-X-ray shows no acute fractures or dislocations, does show mild to moderate osteoarthritis
#QTc prolongation
-ECG with QTc at 505 ms; Home meds include quetiapine and citalopram
-Only mildly elevated, will continue with quetiapine and citalopram and monitor very closely
-Plan to stop quetiapine and escitalopram if QTc prolongs further
-Electrolyte goals K >4 and magnesium >2
-Monitor on telemetry, ECG daily
#HFrEF, unspecified EF
-Per history, no recent echocardiograms; unclear etiology though likely ischemic
-GDMT with carvedilol; on aspirin and statin; not currently on standing diuretics
-Status post AICD as above for chronically depressed LVEF, primary prevention
-Appears fairly euvolemic at this time the will add on BNP to further assess
-Echocardiogram today 05/29 shows normal structure and function
#CAD s/p PCI x 3
-Home medications include aspirin and statin
-Presented with chest pain though initial troponin negative
-Suspicion fairly low for ACS, see above
#COPD
-Not currently on supplemental oxygen
-Home medications include Trelegy and DuoNeb PRN
#Parkinson's disease
#Behavioral disturbance
-Home medications include Sinemet
-Also on quetiapine, Xanax, citalopram
#GERD
-Home medications include famotidine twice daily
#H/O CVA with left-sided deficits
-Home medications include aspirin and statin
-No known history of AF/AFL
-Likely cerebrovascular in nature
#H/O SBO s/p lysis of adhesions
#H/O LLE radiculopathy
DVT prophylaxis: Lovenox
Diet: Bite sized
CODE STATUS: Full code
Anticipated Discharge: 24 - 48 hours
Subjective/Interval History
-
Date of Service: May 29, 2024
Ms. Hernandez was seen and examined at bedside this morning. No acute distress. Although she is concerned about inappropriate ICD discharge which caused her severe chest pain and led to this admission.
Objective Data
-
Vital Signs:
Vital Signs
Temp Pulse Resp BP Pulse Ox
98 F 79 16 110/52 94
05/29/24 15:39 05/29/24 15:39 05/29/24 15:39 05/29/24 15:39 05/29/24 15:39
I&O
05/28/24 05/29/24 05/30/24
06:59 06:59 06:59
Intake Total 300 / 300 500 / 500
Output Total 850 / 850 600 / 600
Balance -550 / -550 -100 / -100
Review of Systems
-
History Source: Patient
Physical Exam
-
General: No Apparent Distress
[2024-05-29 18:37] VITALS: BP 106/67
[2024-05-29] MEDS: SINEMET 10-100 1 TABLET PO (22:20)
[2024-05-29] MEDS: CRESTOR 20 MG PO (22:20)
[2024-05-29 22:21] VITALS: BP 95/55
--- NOTE | 2024-05-29 23:53 | PTCARENOTE ---
Received patient at change of shift. V paced on the monitor, HR in the 80s. VSS on room air. No complaints from pt at this time call españa within reach.
[2024-05-30 02:29] VITALS: BMI 30.9
[2024-05-30 02:31] VITALS: BP 110/55
[2024-05-30] MEDS: ROXICODONE 5 MG PO (02:32)
--- NOTE | 2024-05-30 03:00 | PTCARENOTE ---
Patient complains of 6/10 neck and back pain. PRN pain medication administered as per JUL. . Call españa within reach.
[2024-05-30] MEDS: DUONEB 3 ML INH ×2 (07:22→13:29)
[2024-05-30 07:41] VITALS: BP 132/74
--- NOTE | 2024-05-30 08:30 | W.PN.CARDCBS ---
Addendum entered and electronically signed by Kb Balderrama MD 05/30/24 09:32:
I saw and examined the patient.
The ADJUNCT TRAINER or PA's note was reviewed and I agree with the note.
Comment: General: Well developed, well nourished in NAD.
Neck: Supple, no JVD, HJR, carotids +2 B/L, no bruits bilaterally.
Heart: Non displaced PMI, RRR, no murmurs, No S3, S4, no rubs.
Lungs: scattered rhonchi
Extremities: No clubbing, cyanosis or edema bilaterally.
Neuro: Grossly nonfocal, awake, alert and oriented x3.
Await device check. If unable to be arranged patient will be stable for discharge and can be done as an outpatient.
Original Note:
Today's Communication / Plan
-
Awaiting response from [employer] device rep, Cristine, to see if she can check device today, if not then send patient back to [facility] for outpatient check
Impression / Plan
-
PCP: Dr. Joon Og
EP: Dr Dee [facility],
Primary diesel electrician: Dr Ayers [facility]
Impression:
Chest pain, atypical, resolved
Concern for potential ICD defib
s/p Jevon ([employer]) AICD
device implanted elsewhere and followed by Dr. Dee at [facility]
Hx CM, EF preserved at 50-55% by echo 05/29/24
Hx CAD s/p PCI X 3 stents
COPD
Parkinson's Disease
Hx CVA with residual left sided weakness
GERD
TIAs
Echo 05/29/24: EF 50 to 55%, normal LV wall thickness, mild MAC with trace MR, trace AI
Plan:
-Called Cedric from [employer] again 05/30/24 AM and he reports that Cristine is the closest rep and she is in [place]. Cristine was supposed to check device 05/29/24, but had an unforeseen emergency and had to cancel. Cristine is supposed to come and check
deivce 05/30/24. If for some reason Cristine is unable to come to hospital again on 05/30/24 then there is no one else to check device aside from Cedric who is in [place] and attempting to coordinate care from afar because [employer] devices are so
rare. Patient confirms that Dr. Dee's office does not even check device when she is in their office, but not sure if that is true.
-If Cristine cannot check device 05/30/24 then will send back to [facility] for them to check as an outpatient given otherwise unremarkable work-up this admission
-Called Dr. Dee's office twice on 05/29/24 and records have not arrived from their office. Will try calling a 3rd time 05/30/24.
-Patient reported sharp pain that felt like ICD shock prior to admission. Patient reported that she stood in front of her bedside reader for a download and the device went from green to red which patient says is a visual indicator that something is
wrong and to seek medical attention. Unable to find out who monitors the remote transmissions, no one know, not patient, not Cedric and not Dr. Dee's office.
-Potassium 4.1 and magnesium 2.0 05/28/24 and 05/29/24
-Troponin serially normal
-EF preserved by echo
-Patient was not taking a loop diuretic prior to admission. pro-BNP 369 and no evidence of acute HF on CXR
-Outpatient dose of Coreg 3.125 mg twice daily has been continued
Progress Note - Enterprise Infrastructure Architect
Subjective
Date of Service: May 30, 2024
Denies chest pain
Objective
Labs:
05/29/24 03:33
05/29/24 03:33
Labs
Hgb 12.6 g/dL (12.0-16.0) 05/29/24 03:33
Hct 39.3 % (37.0-47.0) 05/29/24 03:33
Plt Count 297 10^3/uL (130-400) 05/29/24 03:33
Sodium 138 mmol/L (135-145) 05/29/24 03:33
Potassium 4.1 mmol/L (3.5-5.1) 05/29/24 03:33
BUN 20 mg/dl (7-17) H 05/29/24 03:33
Creatinine 0.9 mg/dL (0.6-1.0) 05/29/24 03:33
Glucose 106 mg/dl (70-99) H 05/29/24 03:33
Troponins
05/27/24 05/27/24 05/27/24
08:54 12:59 17:09
Troponin I < 0.012 0.014 Cancelled
05/27/24 05/27/24 05/28/24
19:57 23:09 03:59
Troponin I 0.018 D Cancelled 0.017
Vital Signs and I&O:
Vital Signs
Temp Pulse Resp BP Pulse Ox
97.7 F 83 20 132/74 91
05/30/24 07:40 05/30/24 07:41 05/30/24 07:40 05/30/24 07:41 05/30/24 07:40
Vital Signs
Temp Pulse Resp BP Pulse Ox
97.7 F 83 20 132/74 91
05/30/24 07:40 05/30/24 07:41 05/30/24 07:40 05/30/24 07:41 05/30/24 07:40
Intake & Output
05/28/24 05/29/24 05/30/24 05/31/24
06:59 06:59 06:59 06:59
Intake Total 300 / 300 500 / 500 480 / 480
Output Total 850 / 850 600 / 600 400 / 400
Balance -550 / -550 -100 / -100 80 / 80
Physical Exam
Physical Exam
General: NAD. AAOX3
HEENT: EOMI, MMM
Heart: Paced on tele
Lungs: RA. No audible wheeze
Ext: No edema B/L
[2024-05-30] MEDS: SINEMET 10-100 2 TABLET PO ×2 (08:48→14:36)
[2024-05-30] MEDS: OCUVITE SOFTGEL 1 CAP PO (08:49)
[2024-05-30] MEDS: ASPIR LOW (ENTERIC COATED) 81 MG PO (08:49)
[2024-05-30] MEDS: HIPREX 1 GRAM PO (08:49)
[2024-05-30] MEDS: SEROQUEL 25 MG PO (08:49)
[2024-05-30] MEDS: COREG 3.125 MG PO (08:49)
[2024-05-30] MEDS: THERAGRAN 1 TABLET PO (08:49)
[2024-05-30] MEDS: FEOSOL 325 MG PO (08:49)
[2024-05-30] MEDS: XANAX 0.5 MG PO (08:49)
[2024-05-30] MEDS: VITAMIN C 500 MG PO (08:49)
[2024-05-30] MEDS: COLACE 100 MG PO (08:49)
[2024-05-30] MEDS: CELEXA 20 MG PO (08:49)
[2024-05-30] MEDS: NSS (PRESERVATIVE FREE) 10 ML IV (08:50)
[2024-05-30] MEDS: PROTONIX IV 40 MG IV (08:50)
[2024-05-30] MEDS: PEPCID 20 MG PO (08:50)
[2024-05-30] MEDS: MIRALAX 17 GRAMS PO (08:50)
[2024-05-30] MEDS: FLUSH (NSS) 2 FLUSH IV (08:51)
--- NOTE | 2024-05-30 08:55 | PTCARENOTE ---
The patient is aaox3, vital signs are stable. V-pacing is noted on the monitor. Respiratory placed her on 2L of O2 this morning due to her pulse ox being 86% on RA. She has scattered rhonchi and expiratory wheezing throughout. Her cough has
increased since yesterday and it is frequent, harsh, and moist. Tessalon Perles given as ordered.
[2024-05-30] MEDS: TESSALON PERLES 200 MG PO (09:06)
[2024-05-30 11:24] VITALS: BP 119/56
--- NOTE | 2024-05-30 11:35 | W.PN.UPDATE ---
Update Note
Progress Note Update
Received a call from Dr. Dee's office that the device community engagement representative for [employer] named we are will not be able to make it to today for device check. Dr. Dee's office was able to get the device transmission that patient sent prior
to calling 911 and there was no evidence of ICD shock or arrhythmia. Patient can be discharged back to her long-term detention and follow-up with Dr. Dee's office as an outpatient.
--- NOTE | 2024-05-30 12:07 | PTCARENOTE ---
Weaned the patient off O2, She is 94% on RA.
--- NOTE | 2024-05-30 12:09 | W.DCSUMMARY ---
Discharge Summary
Discharge Data
Date of Admission: 05/27/24
Date of Discharge: 05/30/24
-
Pending Results: No
Hospital Course
Ms. Hernandez is an 83-year-old female with medical history of HFrEF (AICD in place), CAD (status post PCI), COPD, Parkinson's disease, CVA, SBO (status post LUKE), and GERD who presented from her nursing facility with complaints of left-sided chest pain
that woke her from sleep. Patient reports that her pain felt similar to previous when her AICD misfired. No ischemic changes were noted on labs or EKG. She was otherwise medically and hemodynamically stable. Chest imaging showed no evidence of
fluid collection around her AICD and no clear pathology that correlated with her symptoms. She follows with Dr. Dee for electrophysiology care. Our inpatient cardiology team contacted Dr. Dee's office, who was able to confirm remotely that
the patient's AICD was functioning appropriately with no noted discharges. Patient is being discharged back to her nursing facility with instructions to follow-up in the outpatient electrophysiology office.
Gen-AAOx3, NAD
HEENT-NC, AT, anicteric, clear oral mm
Neck-supple
CV-reg, no M, +S1/S2
Lungs-clear B/L
Abd-soft, NT, ND
Musculoskeletal-no edema, no deformity
Skin-warm and dry
Neuro-grossly non-focal
Psych-calm, cooperative
Discharge Plan
-
Patient Disposition: Assisted Living
Discharge Diagnosis/Procedures: Left shoulder pain, suspected ICD malfunction
Diet: Other diet
Additional Diets: Soft and bite sized
Activity: With assistance and As tolerated
Activity Restrictions/Additional Instructions:
Ms. Hernandez is an 83-year-old female with medical history of HFrEF (AICD in place), CAD (status post PCI), COPD, Parkinson's disease, CVA, SBO (status post LUKE), and GERD who presented from her nursing facility with complaints of left-sided chest pain
that woke her from sleep. Patient reports that her pain felt similar to previous when her AICD misfired. No ischemic changes were noted on labs or EKG. She was otherwise medically and hemodynamically stable. Chest imaging showed no evidence of
fluid collection around her AICD and no clear pathology that correlated with her symptoms. She follows with Dr. Dee for electrophysiology care. Our inpatient cardiology team contacted Dr. Dee's office, who was able to confirm remotely that
the patient's AICD was functioning appropriately with no noted discharges. Patient is being discharged back to her nursing facility with instructions to follow-up in the outpatient electrophysiology office.
Referrals:
Joon Og DO [Family Provider] -
Edgar Dee MD [Non-Admitting Privileges] - in two to four weeks (Your device transmission was reviewed by Dr. Dee's office and you did not get shocked.)
Prescriptions:
Continued
carvedilol 6.25 MG tablet
3.125 mg PO BID
aspirin 81 MG tablet,delayed release (DR/EC)
81 mg PO DAILY
rosuvastatin [Crestor] 40 MG tablet
20 mg PO HS
PreserVision AREDS 1 CAP capsule
1 cap PO BID
quetiapine [Seroquel] 25 mg Tablet
25 mg PO BID
acetaminophen [Tylenol] 325 mg Tablet
650 mg PO Q6HPRN PRN (Reason: mild pain)
ipratropium-albuterol 0.5 mg-3 mg(2.5 mg base)/3 mL Solution For Nebulization
3 ml INHALATION R Q6HPRN PRN (Reason: sob)
ipratropium-albuterol 0.5 mg-3 mg(2.5 mg base)/3 mL Solution For Nebulization
3 ml INHALATION R TID
polyethylene glycol 3350 [Miralax] 17 gram Powder In Packet
17 g PO DAILY
benzonatate 200 mg Capsule
200 mg PO TIDPRN PRN (Reason: cough)
therapeutic multivitamin Tablet
1 tab PO DAILY
alprazolam [Xanax] 0.5 mg Tablet
0.5 mg PO TID
methenamine hippurate 1 gram Tablet
1 g PO BID
citalopram [Celexa] 20 mg Tablet
20 mg PO DAILY
famotidine [Pepcid] 20 mg Tablet
20 mg PO BID
ascorbic acid (vitamin C) [Vitamin C] 500 mg Tablet
500 mg PO DAILY
bisacodyl [Dulcolax (bisacodyl)] 10 mg Suppository
10 mg KS DAILYPRN PRN (Reason: if no bm aftr mom)
ferrous sulfate 325 mg (65 mg iron) Tablet
325 mg PO DAILY
carbidopa-levodopa 10-100 mg Tablet
1 tab PO HS
carbidopa-levodopa 10-100 mg Tablet
2 tab PO BID
Fleet Enema 19-7 gram/118 mL Enema
118 ml KS DAILYPRN PRN (Reason: if no bm aftr dulolcax)
docusate sodium [Colace] 100 mg Capsule
100 mg PO BID
cranberry 450 mg Tablet
450 mg PO DAILY
Trelegy Ellipta 100-62.5-25 mcg Blister With Device
1 inh INHALATION R DAILY
Blink Tears 0.25 % Drops
1 drp ophthalmic (eye) TID
Rx Instructions:
both eyes
Gemtesa 75 mg Tablet
75 mg PO DAILY
Discharge Orders:
Discharge Patient (As Directed); Ordered 05/30/24
Ordered By: Rodney Del Valle
Care Plan Goals
Care Plan Goals:
Problem: Readiness for enhanced knowledge related to diagnosis and treatment plan
Goal: Understand your diagnosis and treatment plan needs, including medications if applicable.
Instructions: Know your diagnosis, underlying causes and treatment plan options, including medications if applicable. Consult with your health care team to learn about your diagnosis and treatment plan, including medications if applicable.
Discharge Date and Time
Print Language: YAKUT
--- NOTE | 2024-05-30 13:47 | CM ---
pt going back to [facility] where she is a LTC resident. giovana duncan called and told to patrizia RAMSAY , jodee Wright the admissions liason.
[2024-05-30 15:15] VITALS: BP 124/59
--- NOTE | 2024-05-30 15:43 | PTCARENOTE ---
Patient left VIA a wheelchair Van. Acute Care transported her to [facility].
== END 2024-05-30 15:58 | disposition home health service (06) | DRG 313 ==
LOC: IVU 14:56
PROVIDERS: Nurse Practitioner; ADMITTING PHYSICIAN Internal Medicine; ATTENDING PHYSICIAN Internal Medicine; CONSULT PHYSICIAN Nuclear Medicine Nuclear Cardiology; EMERGENCY PHYSICIAN Emergency Medicine; FAMILY PHYSICIAN Student in an Organized Health Care Education/Training Program
DX: R07.9 Chest pain, unspecified (principal); I50.22 Chronic systolic (congestive) heart failure; I69.354 Hemiplegia and hemiparesis following cerebral infarction affecting left non-dominant side; M25.512 Pain in left shoulder; Z11.52 Encounter for screening for COVID-19; I25.10 Atherosclerotic heart disease of native coronary artery without angina pectoris; J44.9 Chronic obstructive pulmonary disease, unspecified; G20.A1 Parkinson's disease without dyskinesia, without mention of fluctuations; K21.9 Gastro-esophageal reflux disease without esophagitis; Z87.891 Personal history of nicotine dependence; Z95.810 Presence of automatic (implantable) cardiac defibrillator
CPT/HCPCS: 71046; 73560; 76604; 80048; 80053; 83735; 83880; 84484; 85025; 85027; 87502; 87811; 93005; 93306; 94640; 99285; Q9950

== ENCOUNTER 2024-10-29 18:26 | Inpatient (IN) | payer MEDICARE, OTHER, SELFPAY ==
[2024-10-29] VITALS (12 sets, daily range): BP systolic 105–160; BP diastolic 49–85; BMI 32.9; BMI 32.4
[2024-10-29 12:29] LABS: Hematocrit 33.7 % (37.0-47.0); Hemoglobin 11.1 g/dL (12.0-16.0); Mean Corp Hgb Conc. 32.9 g/dL (33.0-37.0); Mean Corpuscular Volume 90.3 fL (81.0-99.0); Nucleated Red Blood Cells % 0 %; Platelet Count 352 10^3/uL (130-400); Red Cell Dist. Width 14.3 % (11.5-14.5)
[2024-10-29] MEDS: ZOFRAN 4 MG IV (12:44)
[2024-10-29] MEDS: DILAUDID 0.5 MG IV ×2 (12:45→22:45)
[2024-10-29] MEDS: NSS 1000 IV ×2 (12:46→20:56)
--- NOTE | 2024-10-29 12:46 | ED.GENMED ---
History of Present Illness
General
Chief Complaint: Abdominal Pain
Source: patient
Exam Limitations: none
Time Seen by Provider: 10/29/24 12:22
Nursing documentation reviewed up to this point in time: agreed with
History of Present Illness
History of Present Illness:
84-year-old female presents with abdominal pain left greater than right with nausea worse with eating, multiple prior surgeries at [facility] tells me she has had bowel obstruction x 3 before, she feels bloated, no chest pain or
shortness of breath
Past History
Past History
ED Past Medical History: Arrthythmia
ED Past Surgical History: Bowel resection and Gynecological
Social History
Tobacco: Non-smoker
Alcohol: None
Drug: None
Living: longterm
Employment: Not employed
Review of Systems
Review of Systems
All Other Systems: Not applicable
Constitutional: Denies fever or fatigue
Respiratory: Reports no symptoms
Cardiac: Reports no symptoms
ABD/GI: Reports abdominal pain and nausea
: Reports no symptoms
Musculoskeletal: Reports no symptoms
Phy Exam
Physical Exam
Physical Exam:
Physical Exam
General: 84 female nontoxic complains of abdominal
Neck: No jaundice
Heart: s1/s2 regular rate and rhythm, no murmur. equal radial pulses.
Lungs: no acute respiratory distress. clear bilaterally
Abdomen: Distended midline surgical scar from the umbilicus to the pelvis tender left greater than right lower
Neuro: alert and oriented. no focal neurological deficits
Skin: no rash
Psychiatric: cooperative
Extremities: no edema.
Course
Orders/Labs/Results
Orders:
Orders
10/29/24 12:05
Electrocardiogram (*1) Urgent
Reason for Study: Abdominal Pain
EKG- Treatment ONCE
IV Insert/Care/Rem.- Treatment PRN
10/29/24 12:18
Complete Blood Count/With Diff Urgent
Comprehensive Metabolic Panel Urgent
Lipase Urgent
10/29/24 12:29
Iohexol [Omnipaque] See Protocol PO NOW STA
10/29/24 12:30
CT Abd/pel (oral only)-DH Only Urgent
Comment:
Reason For Exam: po only, abd pain
0.9% Sodium Chloride 1000 ml [Nss] 1,000 ml IV BOLUS
HYDROmorphone [Dilaudid] 0.5 mg IV NOW STA
Ondansetron Injectable [Zofran] 4 mg IV NOW STA
Abnormal Lab Results
10/29/24
12:18
RBC 3.73 L 10^6/uL
(4.20-5.40)
Hgb 11.1 L g/dL
(12.0-16.0)
Hct 33.7 L %
(37.0-47.0)
MCHC 32.9 L g/dL
(33.0-37.0)
Abs Immat Gran (auto) 0.1 H 10^3/uL
(0-0.05)
Absolute Monos (auto) 1.0 H 10^3/uL
(0.1-0.6)
Immature Gran % 0.7 H %
(0-0.5)
Lymphocytes % 14.2 L %
(20.5-51.1)
Monocytes % 10.6 H %
(1.7-9.3)
10/29/24 12:18
Vital Signs
Initial and Last Documented VS:
Initial Vital Signs
Temp Pulse Resp BP Pulse Ox
99.2 F 95 22 160/85 94
10/29/24 12:01 10/29/24 12:01 10/29/24 12:01 10/29/24 12:01 10/29/24 12:01
Last Documented Vital Signs
Temp Pulse Resp BP Pulse Ox
99.2 F 95 22 160/85 94
10/29/24 12:01 10/29/24 12:01 10/29/24 12:01 10/29/24 12:01 10/29/24 12:47
MDM/Problems Addressed
Differential Diagnosis Includes:
Obstruction partial bowel obstruction adhesions chronic abdominal pain urinary pathology other
MDM/Problems Addressed:
Abdominal pain
Chronic conditions affecting care: Previous abdomnial surgery
Acute Exacerbation and/or Progression of Chronic Illness: Previous abdomnial surgery
*Pulse Oximetry
SaO2: 94
Oxygen Mode of Delivery: Room air
Patient hypoxic: no
*Critical Care Note
Total Time (30-74mins, 75-104mins- exclusive of procedures): Not Applicable
ED Attending Note
-
Portions of this chart may have been created with voice recognition software.� Occasional wrong word or��sound alike� substitutions may have occurred due to the inherent limitations of voice recognition software.
Discharge Plan
Departure
Prescriptions:
No Action
carvedilol 6.25 MG tablet
3.125 mg PO BID
aspirin 81 MG tablet,delayed release (DR/EC)
81 mg PO DAILY
rosuvastatin [Crestor] 40 MG tablet
20 mg PO HS
PreserVision AREDS 1 CAP capsule
1 cap PO BID
quetiapine [Seroquel] 25 mg Tablet
25 mg PO BID
acetaminophen [Tylenol] 325 mg Tablet
650 mg PO Q6HPRN PRN (Reason: mild pain)
ipratropium-albuterol 0.5 mg-3 mg(2.5 mg base)/3 mL Solution For Nebulization
3 ml INHALATION R Q6HPRN PRN (Reason: sob)
ipratropium-albuterol 0.5 mg-3 mg(2.5 mg base)/3 mL Solution For Nebulization
3 ml INHALATION R TID
polyethylene glycol 3350 [Miralax] 17 gram Powder In Packet
17 g PO DAILY
benzonatate 200 mg Capsule
200 mg PO TIDPRN PRN (Reason: cough)
therapeutic multivitamin Tablet
1 tab PO DAILY
alprazolam [Xanax] 0.5 mg Tablet
0.5 mg PO TID
methenamine hippurate 1 gram Tablet
1 g PO BID
citalopram [Celexa] 20 mg Tablet
20 mg PO DAILY
famotidine [Pepcid] 20 mg Tablet
20 mg PO BID
ascorbic acid (vitamin C) [Vitamin C] 500 mg Tablet
500 mg PO DAILY
bisacodyl [Dulcolax (bisacodyl)] 10 mg Suppository
10 mg [place] DAILYPRN PRN (Reason: if no bm aftr mom)
ferrous sulfate 325 mg (65 mg iron) Tablet
325 mg PO DAILY
carbidopa-levodopa 10-100 mg Tablet
1 tab PO HS
carbidopa-levodopa 10-100 mg Tablet
2 tab PO BID
Fleet Enema 19-7 gram/118 mL Enema
118 ml [place] DAILYPRN PRN (Reason: if no bm aftr dulolcax)
docusate sodium [Colace] 100 mg Capsule
100 mg PO BID
cranberry 450 mg Tablet
450 mg PO DAILY
Trelegy Ellipta 100-62.5-25 mcg Blister With Device
1 inh INHALATION R DAILY
Blink Tears 0.25 % Drops
1 drp ophthalmic (eye) TID
Rx Instructions:
both eyes
Gemtesa 75 mg Tablet
75 mg PO DAILY
Interventions
Interventions:
*Risk Screen - Suicide Last Done: 10/29/24 12:10
*General Assessment Last Done: 10/29/24 12:10
*Neglect/Abuse Screening Last Done: 10/29/24 12:10
*ED COVID-19 Vaccine History Last Done: 10/29/24 12:11
Discharge Date and Time
Print Language: LITHUANIAN
[2024-10-29] MEDS: OMNIPAQUE 50 ML PO (12:47)
[2024-10-29 13:00] LABS: ALT (SGPT) < 10 U/L (0-35); AST (SGOT) 20 U/L (14-36); Albumin 4.4 g/dl (3.5-5.0); Alkaline Phosphatase 71 U/L (38-126); Blood Urea Nitrogen 22 mg/dl (7-17); Calcium 9.9 mg/dl (8.4-10.2); Carbon Dioxide 26 mmol/L (22-30); Chloride 106 mmol/L (98-107); Estimated Creatinine Clearance 50 ml/min; Glucose 103 mg/dl (70-99); Lipase 96 U/L (23-300); Potassium 4.5 mmol/L (3.5-5.1); Sodium 140 mmol/L (135-145); Total Protein 7.2 g/dl (6.3-8.2); eGFR > 60.00
[2024-10-29] MEDS: DILAUDID 1 MG IV (14:03)
--- NOTE | 2024-10-29 17:49 | HPS.HSE ---
Addendum entered and electronically signed by Vj Gonzalez MD 10/29/24 18:16:
Patient is allergic to penicillin/fluoroquinolone. Maintained on Merrem for the time being.
Original Note:
Family Physician
-
Family Physician: Joon Og DO
Chief Complaint
-
Left-sided abdominal pain
History of Present Illness
Patient is a 84-year-old female with past medical history of Parkinson's, history of abdominal surgeries and small bowel obstructions x 3, chronic systolic congestive heart failure, history of coronary disease status post PCI, COPD, status post
AICD, reflux disease, history of stroke and left-sided weakness was sent from skilled nursing after patient was noted to having left-sided flank pain. Patient reported of symptoms starting approximately 4 to 5 days back and having deep-seated and
sometimes sharp pain in left flank and lower abdomen with some radiation to back. Patient reported to have usually constipation but at times have diarrhea, last bowel movement in the morning was solid. No reported blood in stool. Patient did not
have any nausea or vomiting, was mentioning that she had episodes of 3 small bowel obstruction and at that time patient had significant vomiting but nothing this time. Patient also noted some bloating and abdominal distention. Remains afebrile.
No reported cardiopulmonary complaints.
Medical History
Past Medical History
Past Medical History: Reports Other
Additional Past Medical History:
Parkinson's, history of abdominal surgeries and small bowel obstructions x 3, chronic systolic congestive heart failure, history of coronary disease status post PCI, COPD, status post AICD, reflux disease, history of stroke and left-sided weakness
Past Surgical History: Reports Other
Social History
Tobacco: Non-smoker
Alcohol: None
Living: Skilled Nursing
Family History
Family History: Not pertinent
Allergies / Home Medications
Allergies reflects when Allergies were last updated in [facility].
Home Medications with original date entered in [facility]
Allergy/Medication List:
Allergies
Allergy/AdvReac Type Severity Reaction Status Date / Time
atorvastatin Allergy Unknown Verified 10/29/24 13:10
cephalexin Allergy Unknown Verified 10/29/24 13:10
ciprofloxacin Allergy Unknown Verified 10/29/24 13:10
codeine Allergy Unknown Verified 10/29/24 12:00
escitalopram (From Lexapro) Allergy Unknown Verified 10/29/24 13:10
hydromorphone (From Dilaudid) Allergy Hallucinati Verified 10/29/24 13:10
ons?
Iodinated Contrast Media Allergy Unknown Verified 10/29/24 12:00
levofloxacin Allergy Unknown Verified 10/29/24 13:10
metoclopramide (From Reglan) Allergy Unknown Verified 10/29/24 12:00
Penicillins Allergy Unknown Verified 10/29/24 12:00
Sulfa (Sulfonamide Allergy Unknown Verified 10/29/24 13:10
Antibiotics)
sulfamethoxazole Allergy Unknown Verified 10/29/24 13:10
trimethoprim Allergy Unknown Verified 10/29/24 13:10
venlafaxine Allergy Unknown Verified 10/29/24 13:10
Home Medications
aspirin 81 mg tablet,delayed release 81 mg PO DAILY Blood Clot Prevention/Tx 10/24/19
carvedilol 6.25 mg tablet 3.125 mg PO BID Blood Pressure 10/24/19
rosuvastatin 40 mg tablet (Crestor) 20 mg PO HS High Cholesterol 10/24/19
vitamins A,C,P-lktq-ueguzp 4,296 mcg-226 mg-90 mg capsule (PreserVision AREDS) 1 cap PO BID Supplement 10/24/19
acetaminophen 325 mg tablet (Tylenol) 650 mg PO Q6HPRN PRN mild pain 05/27/24
alprazolam 0.5 mg tablet (Xanax) 0.5 mg PO TID Mental Health/Anxiety 05/27/24
ascorbic acid (vitamin C) 500 mg tablet (Vitamin C) 500 mg PO DAILY Supplement 05/27/24
benzonatate 200 mg capsule 200 mg PO TIDPRN PRN cough 05/27/24
carbidopa 10 mg-levodopa 100 mg tablet 1 tab PO HS Neurological Condition 05/27/24
carbidopa 10 mg-levodopa 100 mg tablet 2 tab PO BID Neurological Condition 05/27/24
citalopram 20 mg tablet (Celexa) 20 mg PO DAILY Mental Health/Anxiety 05/27/24
cranberry fruit 450 mg tablet (cranberry) 450 mg PO DAILY Urinary Issue 05/27/24
docusate sodium 100 mg capsule (Colace) 100 mg PO BID Gastrointestinal Issue 05/27/24
famotidine 20 mg tablet (Pepcid) 40 mg PO HS Gastrointestinal Issue 05/27/24
ferrous sulfate 325 mg (65 mg iron) tablet 325 mg PO DAILY Supplement 05/27/24
ipratropium 0.5 mg-albuterol 3 mg (2.5 mg base)/3 mL nebulization soln 3 ml inhalation R Q6HPRN PRN sob 05/27/24
ipratropium 0.5 mg-albuterol 3 mg (2.5 mg base)/3 mL nebulization soln 3 ml inhalation R TID Lung/Breathing Issues 05/27/24
methenamine hippurate 1 gram tablet 1 g PO BID Urinary Issue 05/27/24
polyethylene glycol 3350 17 gram oral powder packet (Miralax) 17 g PO DAILY Gastrointestinal Issue 05/27/24
polyethylene glycol 400 0.25 % eye drops (Blink Tears) 1 drp ophthalmic (eye) QID both eyes 05/27/24
quetiapine 25 mg tablet (Seroquel) 25 mg PO BID Mental Health/Anxiety 05/27/24
sodium phosphates 19 gram-7 gram/118 mL enema (Fleet Enema) 118 ml CO DAILYPRN PRN if no bm aftr dulolcax 05/27/24
therapeutic multivitamin 1 tab PO DAILY Supplement 05/27/24
vibegron 75 mg tablet (Gemtesa) 75 mg PO DAILY Urinary Issue 05/27/24
acetaminophen 500 mg tablet (Tylenol Extra Strength) 1,000 mg PO BID 10/29/24
aluminum-mag hydroxide-simethicone 400 mg-400 mg-40 mg/5 mL oral susp (Maalox Maximum Strength) 30 ml PO [id number] PRN heartburn 10/29/24
ammonium lactate 12 % lotion 1 applic topical HS b/l feet 10/29/24
bisacodyl 10 mg rectal suppository (Dulcolax (bisacodyl)) 10 mg CO DAILYPRN PRN if no bm aftr mom 10/29/24
budesonide 0.5 mg/2 mL suspension for nebulization 0.5 mg inhalation R BID 10/29/24
dexlansoprazole 60 mg capsule,biphase delayed release (Dexilant) 60 mg PO DAILY 10/29/24
folic acid 400 mcg tablet 0.4 mg PO DAILY 10/29/24
guaifenesin 400 mg tablet (Mucus Relief) 400 mg PO [id number] PRN cough 10/29/24
magnesium hydroxide 400 mg/5 mL oral suspension (Milk of Magnesia) 2,400 mg PO [id number] PRN constipation 10/29/24
thiamine HCl (vitamin B1) 50 mg tablet 50 mg PO DAILY 10/29/24
tramadol 50 mg tablet 50 mg PO BIDPRN PRN moderate pain 10/29/24
Review of Systems
-
A 12 point ROS was completed and negative except as noted: Yes
Physical Exam
Vital Signs
Vital Signs
Temp Pulse Resp BP Pulse Ox
99.2 F 79 13 105/67 94
10/29/24 12:01 10/29/24 17:45 10/29/24 17:45 10/29/24 17:00 10/29/24 17:45
Physical Exam
General: Well Developed, Well Nourished and No Apparent Distress
HEENT: NormoCephalic, Moist mucous membranes and Atraumatic
Respiratory: Clear
Cardiac: S1/S2 and Regular Rhythm; No Murmur or Rub
GI: Soft, Non Distended and Other (surgical scar from previous abd sx); No Organomegaly
Rectal: Deferred by Provider
Musculoskeletal: No Clubbing, No Cyanosis and No Edema
Skin: No Rash
Neuro: Awake, Alert, Oriented and Nonfocal/grossly intact
Laboratory Results
-
10/29/24 12:18
10/29/24 12:18
Laboratory Results
Total Bilirubin 0.5 mg/dl (0.2-1.3) 10/29/24 12:18
AST 20 U/L (14-36) 10/29/24 12:18
ALT < 10 U/L (0-35) 10/29/24 12:18
Alkaline Phosphatase 71 U/L (38-126) 10/29/24 12:18
Lipase 96 U/L (23-300) 10/29/24 12:18
Impression/Plan
-
1. Left flank pain
Suspected infectious colitis versus malignancy
history of abdominal surgeries and small bowel obstructions x 3
-Patient mainly presented for new onset of left-sided and lower abdominal pain
-No change in bowel habit and patient constipated
-CT abdomen pelvis in the ER showing short segment of colon inflamed questioning of possible infectious versus telemetry colitis versus malignancy
-Maintain patient on empiric Unasyn for now
-IV fluid and pain medication ordered
-Colorectal surgery requested to evaluate patient with history of small bowel resection and previous history of abdominal issue
2. Parkinson's disease
- Resume home dose of Sinemet once dosing confirmed
3. chronic diastolic congestive heart failure
History of AICD placement
- No signs of volume overload
- Patient on GDMT with aspirin/statin/Coreg.
- Not on regular dose of diuretic
history of coronary disease status post PCI
COPD
reflux disease
history of stroke and left-sided weakness
DVT PPX - lovenox
FUll code
Total time spent : 78 mins
I personally saw and examined the patient.
I have reviewed all diagnostic interpretations and treatment plans as written.
Time includes patient management by me, time spent at the patients bedside, time to review lab and imaging results, discussing patient care, documentation in the medical record, and time spent with the family or caregiver and discussing care plan
with RN/Consultants.
[2024-10-29] MEDS: LOVENOX 40 MG SC (20:52)
[2024-10-29] MEDS: COREG 3.125 MG PO (20:56)
[2024-10-29] MEDS: STERILE WATER FOR INJECTION 10 ML IV (20:58)
[2024-10-29] MEDS: MERREM 500 MG IV (20:58)
[2024-10-29] MEDS: PEPCID PO ×2 (21:01→21:05)
[2024-10-30] MEDS: MERREM 500 MG IV ×4 (03:31→19:55)
[2024-10-30] MEDS: STERILE WATER FOR INJECTION 10 ML IV ×4 (03:31→19:55)
[2024-10-30] MEDS: DILAUDID 0.5 MG IV ×4 (03:40→21:39)
[2024-10-30 06:00] VITALS: BMI 32.4
[2024-10-30 06:12] LABS: Hematocrit 33.6 % (37.0-47.0); Hemoglobin 10.7 g/dL (12.0-16.0); Mean Corp Hgb Conc. 31.8 g/dL (33.0-37.0); Mean Corpuscular Volume 93.3 fL (81.0-99.0); Platelet Count 322 10^3/uL (130-400); Red Cell Dist. Width 14.6 % (11.5-14.5)
[2024-10-30] MEDS: ROBITUSSIN 400 MG PO (06:23)
[2024-10-30 06:58] LABS: Blood Urea Nitrogen 18 mg/dl (7-17); Calcium 8.9 mg/dl (8.4-10.2); Carbon Dioxide 22 mmol/L (22-30); Chloride 112 mmol/L (98-107); Estimated Creatinine Clearance 50 ml/min; Glucose 89 mg/dl (70-99); Potassium 4.4 mmol/L (3.5-5.1); eGFR > 60.00
[2024-10-30 07:00] VITALS: BP 135/71
[2024-10-30] MEDS: DUONEB 3 ML INH ×2 (07:33→19:18)
[2024-10-30] MEDS: PULMICORT 0.5 MG INH ×2 (07:33→19:18)
--- NOTE | 2024-10-30 07:37 | PTCARENOTE ---
Patient arrived on unit @1915 via stretcher from ED, pulled over to bed with assist x3. Patient alert and oriented, skin assessment completed, oriented to unit, call españa within reach.
[2024-10-30 08:06] LABS: Sodium 139 mmol/L (135-145)
[2024-10-30] MEDS: ASPIR LOW (ENTERIC COATED) 81 MG PO (08:39)
[2024-10-30] MEDS: VITAMIN C 500 MG PO (08:39)
[2024-10-30] MEDS: XANAX 0.5 MG PO ×3 (08:39→21:40)
[2024-10-30] MEDS: COLACE 100 MG PO (08:39)
[2024-10-30] MEDS: OCUVITE SOFTGEL 1 CAP PO ×2 (08:39→19:54)
[2024-10-30] MEDS: PEPCID 20 MG PO (08:39)
[2024-10-30] MEDS: VITAMIN B1 50 MG PO (08:39)
[2024-10-30] MEDS: CELEXA 20 MG PO (08:39)
[2024-10-30] MEDS: FOLVITE 0.4 MG PO (08:39)
[2024-10-30] MEDS: COREG 3.125 MG PO ×2 (08:40→19:54)
[2024-10-30] MEDS: REFRESH EYE DROPS (PF) 1 DROPS OPHTH ×4 (08:40→21:40)
[2024-10-30] MEDS: PROTONIX 40 MG PO (08:40)
[2024-10-30] MEDS: SEROQUEL 25 MG PO ×2 (08:40→19:54)
[2024-10-30] MEDS: SINEMET 10-100 2 TABLET PO ×2 (08:41→15:30)
[2024-10-30] MEDS: TYLENOL 1000 MG PO ×2 (08:41→19:54)
[2024-10-30] MEDS: THERAGRAN 1 TABLET PO (08:43)
[2024-10-30] MEDS: DESENEX/MITRAZOL/ZEASORB 1 APPLIC TOPICAL ×2 (08:46→19:56)
--- NOTE | 2024-10-30 09:26 | CON.CRS ---
Consultation
-
Date/Time Consultation Requested: 10/29/2024, 19:33
Date/Time Consultation Performed: 10/30/2024, 9:30
Requesting Provider: Katty Gonzalez MD
Performing Provider: Ike Del Cid MD
Reason for Consultation: RLQ pain
Medical History
-
Chief Complaint: abdominal pain
History of Present Illness:
84-year-old female, who has a past medical history of Parkinson's, multiple abdominal surgeries secondary to small bowel obstructions x 3, and permanent pacemaker, presents to [facility] on 10/29/2024 complaining of abdominal pain. The
patient states that her symptoms started about 4 to 5 days ago on the left side and she was worried about another obstruction. She states the pain is worse when she eats and even water will cause her to have extreme abdominal pain. She has some
nausea but no vomiting. She is having flatus still but no bowel movements. She typically takes MiraLAX daily in order to have a bowel movement and goes about every 2 or 3 days on average. Denies blood in the stool. She still has some abdominal
pain and feels bloated. On admission her WBC was normal. Her vitals have remained normal.. CT of the abdomen and pelvis shows previous bowel surgery There has been previous bowel surgery, with anastomotic suture material identified. The type of
previous surgical procedure, where there are evolving small bowel or colon, is difficult to determine with certainty. There are abnormal loops of bowel in the pelvis, as described, which have an appearance more consistent with segments of colon, as
opposed to small bowel, though it is difficult to determine with certainty. This includes a 5 cm segment of bowel with circumferential wall thickening and luminal narrowing as well as adjacent hazy attenuation, which may be infectious, inflammatory,
or neoplastic. There is also a segment of bowel the pelvis with haustral markings suggesting possibly representing the cecum, with associated mild wall thickening. Given these findings, we have been consulted for further surgical recommendations.
Past Medical History
Past Medical History: Other (Parkinson's, SBO x 3, chronic systolic congestive heart failure, history of coronary disease status post PCI, COPD, status post AICD, reflux disease, history of stroke and left-sided weakness)
Past Surgical History: Bowel Resection (SBO x 3 s/p resection. Several years ago, at [facility] then [facility] per patient)
Social History
Tobacco: Non-Smoker
Alcohol: None
Drug: None
Family History
Family History: Reviewed & Not Pertinent
Allergies / Home Medications
Allergy/AdvReac Type Severity Reaction Status Date / Time
atorvastatin Allergy Unknown Verified 10/29/24 13:10
cephalexin Allergy Unknown Verified 10/29/24 13:10
ciprofloxacin Allergy Unknown Verified 10/29/24 13:10
codeine Allergy Unknown Verified 10/29/24 12:00
escitalopram (From Lexapro) Allergy Unknown Verified 10/29/24 13:10
hydromorphone (From Dilaudid) Allergy Hallucinati Verified 10/29/24 13:10
ons?
Iodinated Contrast Media Allergy Unknown Verified 10/29/24 12:00
levofloxacin Allergy Unknown Verified 10/29/24 13:10
metoclopramide (From Reglan) Allergy Unknown Verified 10/29/24 12:00
Penicillins Allergy Unknown Verified 10/29/24 12:00
Sulfa (Sulfonamide Allergy Unknown Verified 10/29/24 13:10
Antibiotics)
sulfamethoxazole Allergy Unknown Verified 10/29/24 13:10
trimethoprim Allergy Unknown Verified 10/29/24 13:10
venlafaxine Allergy Unknown Verified 10/29/24 13:10
�Medication �Instructions �Recorded �Confirmed �Type
aspirin 81 mg tablet,delayed 81 mg PO DAILY Blood Clot 10/24/19 10/29/24 History
release Prevention/Tx
carvedilol 6.25 mg tablet 3.125 mg PO BID Blood Pressure 10/24/19 10/29/24 History
rosuvastatin 40 mg tablet (Crestor) 20 mg PO HS High Cholesterol 10/24/19 10/29/24 History
vitamins A,C,V-skfa-fegchh 4,296 1 cap PO BID Supplement 10/24/19 10/29/24 History
mcg-226 mg-90 mg capsule
(PreserVision AREDS)
acetaminophen 325 mg tablet 650 mg PO Q6HPRN PRN mild pain 05/27/24 10/29/24 History
(Tylenol)
alprazolam 0.5 mg tablet (Xanax) 0.5 mg PO TID Mental Health/Anxiety 05/27/24 10/29/24 History
ascorbic acid (vitamin C) 500 mg 500 mg PO DAILY Supplement 05/27/24 10/29/24 History
tablet (Vitamin C)
benzonatate 200 mg capsule 200 mg PO TIDPRN PRN cough 05/27/24 10/29/24 History
carbidopa 10 mg-levodopa 100 mg 1 tab PO HS Neurological Condition 05/27/24 10/29/24 History
tablet
carbidopa 10 mg-levodopa 100 mg 2 tab PO BID Neurological Condition 05/27/24 10/29/24 History
tablet
citalopram 20 mg tablet (Celexa) 20 mg PO DAILY Mental 05/27/24 10/29/24 History
Health/Anxiety
cranberry fruit 450 mg tablet 450 mg PO DAILY Urinary Issue 05/27/24 10/29/24 History
(cranberry)
docusate sodium 100 mg capsule 100 mg PO BID Gastrointestinal 05/27/24 10/29/24 History
(Colace) Issue
famotidine 20 mg tablet (Pepcid) 40 mg PO HS Gastrointestinal Issue 05/27/24 10/29/24 History
ferrous sulfate 325 mg (65 mg 325 mg PO DAILY Supplement 05/27/24 10/29/24 History
iron) tablet
ipratropium 0.5 mg-albuterol 3 mg 3 ml inhalation R Q6HPRN PRN sob 05/27/24 10/29/24 History
(2.5 mg base)/3 mL nebulization
soln
ipratropium 0.5 mg-albuterol 3 mg 3 ml inhalation R TID 05/27/24 10/29/24 History
(2.5 mg base)/3 mL nebulization Lung/Breathing Issues
soln
methenamine hippurate 1 gram tablet 1 g PO BID Urinary Issue 05/27/24 10/29/24 History
polyethylene glycol 3350 17 gram 17 g PO DAILY Gastrointestinal 05/27/24 10/29/24 History
oral powder packet (Miralax) Issue
polyethylene glycol 400 0.25 % eye 1 drp ophthalmic (eye) QID both 05/27/24 10/29/24 History
drops (Blink Tears) eyes
quetiapine 25 mg tablet (Seroquel) 25 mg PO BID Mental Health/Anxiety 05/27/24 10/29/24 History
sodium phosphates 19 gram-[address] DAILYPRN PRN if no bm 05/27/24 10/29/24 History
gram/118 mL enema (Fleet Enema) aftr dulolcax
therapeutic multivitamin 1 tab PO DAILY Supplement 05/27/24 10/29/24 History
vibegron 75 mg tablet (Gemtesa) 75 mg PO DAILY Urinary Issue 05/27/24 10/29/24 History
acetaminophen 500 mg tablet 1,000 mg PO BID 10/29/24 10/29/24 History
(Tylenol Extra Strength)
aluminum-mag hydroxide-simethicone 30 ml PO [id number] PRN heartburn 10/29/24 10/29/24 History
400 mg-400 mg-40 mg/5 mL oral susp
(Maalox Maximum Strength)
ammonium lactate 12 % lotion 1 applic topical HS b/l feet 10/29/24 10/29/24 History
bisacodyl 10 mg rectal suppository [address] DAILYPRN PRN if no bm 10/29/24 10/29/24 History
(Dulcolax (bisacodyl)) aftr mom
budesonide 0.5 mg/2 mL suspension 0.5 mg inhalation R BID 10/29/24 10/29/24 History
for nebulization
dexlansoprazole 60 mg 60 mg PO DAILY 10/29/24 10/29/24 History
capsule,biphase delayed release
(Dexilant)
folic acid 400 mcg tablet 0.4 mg PO DAILY 10/29/24 10/29/24 History
guaifenesin 400 mg tablet (Mucus 400 mg PO [id number] PRN cough 10/29/24 10/29/24 History
Relief)
magnesium hydroxide 400 mg/5 mL 2,400 mg PO [id number] PRN 10/29/24 10/29/24 History
oral suspension (Milk of Magnesia) constipation
thiamine HCl (vitamin B1) 50 mg 50 mg PO DAILY 10/29/24 10/29/24 History
tablet
tramadol 50 mg tablet 50 mg PO BIDPRN PRN moderate pain 10/29/24 10/29/24 History
Review of Systems
-
History Source: Patient
Abdomen/GI: Abdominal Pain, Nausea and Constipated
A 10 point review of systems was completed, and was negative except as per HPI.
Physical Exam
Vital Signs
Temp 98.3 F 10/30/24 07:00
Pulse 86 10/30/24 08:40
Resp Rate 19 10/30/24 07:41
Blood pressure 135/71 10/30/24 08:40
SaO2 96 10/30/24 07:41
10/29/24 10/30/24 10/31/24
06:59 06:59 06:59
Actual Weight 72.802 kg
Body Mass Index (BMI) 32.4
Lab Results / Allergies
10/30/24 05:37
10/30/24 05:37
WBC 7.3 10^3/uL (4.8-10.8) 10/30/24 05:37
Hgb 10.7 g/dL (12.0-16.0) L 10/30/24 05:37
Hct 33.6 % (37.0-47.0) L 10/30/24 05:37
Plt Count 322 10^3/uL (130-400) 10/30/24 05:37
Abs Immat Gran (auto) 0.1 10^3/uL (0-0.05) H 10/29/24 12:18
Neutrophils % 71.1 % (42.2-75.2) 10/29/24 12:18
Allergy/AdvReac Type Severity Reaction Status Date / Time
atorvastatin Allergy Unknown Verified 10/29/24 13:10
cephalexin Allergy Unknown Verified 10/29/24 13:10
ciprofloxacin Allergy Unknown Verified 10/29/24 13:10
codeine Allergy Unknown Verified 10/29/24 12:00
escitalopram (From Lexapro) Allergy Unknown Verified 10/29/24 13:10
hydromorphone (From Dilaudid) Allergy Hallucinati Verified 10/29/24 13:10
ons?
Iodinated Contrast Media Allergy Unknown Verified 10/29/24 12:00
levofloxacin Allergy Unknown Verified 10/29/24 13:10
metoclopramide (From Reglan) Allergy Unknown Verified 10/29/24 12:00
Penicillins Allergy Unknown Verified 10/29/24 12:00
Sulfa (Sulfonamide Allergy Unknown Verified 10/29/24 13:10
Antibiotics)
sulfamethoxazole Allergy Unknown Verified 10/29/24 13:10
trimethoprim Allergy Unknown Verified 10/29/24 13:10
venlafaxine Allergy Unknown Verified 10/29/24 13:10
Physical Exam
General: Well Developed, Well Nourished and No Apparent Distress
GI: Tender (moderate RLQ/LLQ) and Distended (mild)
Skin: Warm and Dry
Neuro: AO x 3
Data Reviewed
-
CT Scan: Image Personally Visualized and interpreted, Report Reviewed by me and Discussed with Patient
Labs: Labs Reviewed by me, Discussed with Physician and Discussed with Patient
Assessment / Plan
-
Assessment: 84 yo female with abdominal pain for several days found to have a 5 cm segment of bowel with circumferential wall thickening and luminal narrowing as well as a hazy attenuation which might be infectious, inflammatory, or neoplastic
Plan:
-CTE for further examination of the bowel ?inflammatory. Unable to get an MRI due to PPM.
-Remain NPO for now
-Stool cultures
-Fecal calpro ordered
-CEA/CA-19 ordered
-Follow labs and exams
-Will follow
[2024-10-30] MEDS: BENADRYL 50 MG IV (11:06)
[2024-10-30] MEDS: SOLU-CORTEF 200 MG IV (11:07)
[2024-10-30 11:09] LABS: C-Reactive Protein < 5.00 mg/L (0.0-10.00)
--- NOTE | 2024-10-30 14:07 | W.PN.HOSP.TC ---
Today's Communication/Plan
-
N.p.o.
CT with contrast
IV antibiotics
Pain control
IV fluids
Assessment / Plan
Assessment / Plan
Physical Exam
General: Well Developed, Well Nourished and No Apparent Distress
HEENT: NormoCephalic, Moist mucous membranes and Atraumatic
Respiratory: Clear
Cardiac: S1/S2 and Regular Rhythm; No Murmur or Rub
GI: Soft, Non Distended and Other (surgical scar from previous abd sx); No Organomegaly
Rectal: Deferred by Provider
Musculoskeletal: No Clubbing, No Cyanosis and No Edema
Skin: No Rash
Neuro: Awake, Alert, Oriented and Nonfocal/grossly intact
#Abdominal Pain
#?Colitis v mlignancy in ptient w/ hx of abdominal sx
-IVF
-Pain regimen
-Abx
- CT w/ IV contrast - was not performed prior with steroid ppx for contrrast
-Maintain patient on empiric Unasyn for now
-Colorectal surgery requested to evaluate patient with history of small bowel resection and previous history of abdominal issue
-CEA, CRP, calprotectin
# Parkinson's disease
- Resume home dose of Sinemet
#chronic diastolic congestive heart failure
# History of AICD placement
- No signs of volume overload
- Patient on GDMT with aspirin/statin/Coreg.
- Not on regular dose of diuretic
#history of coronary disease status post PCI
#COPD
#GERD
#history of stroke and left-sided weakness
DVT PPX - lovenox
FUll code
Total time spent on today's encounter was 50 minutes which included time spent in counseling the patient/family regarding diagnosis and treatment plan as listed above, goals of care, and symptom management. Case was discussed with nursing staff,
specialists, and care coordinators/case management. All labs and imaging personally reviewed by me. Remainder the time spent in detailed review of previous records, lab data, imaging, and other medical provider documentation.
Anticipated Discharge: > 48 hours
Subjective/Interval History
-
Date of Service: October 30, 2024
still with abd pain
Objective Data
-
Labs:
Laboratory Results
10/30/24
05:37
WBC 7.3
Hgb 10.7 L
Hct 33.6 L
Plt Count 322
Sodium 139
Potassium 4.4
Chloride 112 H
Carbon Dioxide 22
BUN 18 H
Creatinine 0.7
Glucose 89
Calcium 8.9
Vital Signs:
Vital Signs
Temp Pulse Resp BP Pulse Ox
98.3 F 86 19 135/71 96
10/30/24 07:00 10/30/24 08:40 10/30/24 07:41 10/30/24 08:40 10/30/24 07:41
I&O
10/29/24 10/30/24 10/31/24
06:59 06:59 06:59
Intake Total 500 / 500
Output Total 200 / 200 1000 / 1000
Balance -200 / -200 -500 / -500
Review of Systems
-
History Source: Patient
All other systems: Not reviewed unless documented
Physical Exam
-
General: No Apparent Distress
Data Reviewed
-
CT Scan: Report Reviewed by me
Labs: Labs Reviewed by me and Discussed with Physician (Cardiology)
[2024-10-30] MEDS: NSS IV (14:20)
[2024-10-30] MEDS: LR 1000 IV (14:26)
[2024-10-30 15:00] VITALS: BP 138/69
[2024-10-30 15:23] LABS: CEA 0.88 ng/ml
--- NOTE | 2024-10-30 15:51 | CM ---
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
Pharmacy [facility]
PCP Dr Og
PLAN Return to [facility]
[2024-10-30] MEDS: HEPARIN 5000 UNITS SC (19:54)
[2024-10-30] MEDS: PEPCID PO ×2 (19:54→19:59)
[2024-10-30] MEDS: COLACE PO ×2 (19:54→19:58)
--- NOTE | 2024-10-30 20:08 | W.PN.UPDATE ---
Addendum entered and electronically signed by Tulio Soler MD 10/30/24 21:24:
Her daughter called through the answering service and I relayed the findings to her. All questions answered.
Original Note:
Update Note
Progress Note Update
Attempted to call the patient, but the phone numbers listed are for the patient's daughter and the patient's son. Called both lines and both went to voicemail twice. Reviewed the CTE with Dr. Benitez via [facility] text. Unfortunately due to lack of
IV contrast (patient did not have adequate IV access), difficult to ascertain bowel wall thickening, specifically the area of concern. I reviewed the CT scan and the CTE with the on-call radiologist, Dr. Nagy, who felt that the 5 cm thickening
in the small bowel adjacent to one of the small bowel anastomoses did not appear masslike and seemed less pronounced on the CTE today. Additionally, this area of thickening was not associated with a transition point. With these findings, it
appears less likely that this thickening represents a small bowel mass. Patient's CEA is normal and CA 19-9 is pending. CRP is less than 5, suggesting against inflammatory thickening.
�Will follow-up CA 19-9, stool studies and fecal calprotectin
� The small bowel finding appears more likely to be related to a gastroenteritis; due to lack of bowel function and a distended stomach on imaging, would recommend continuing n.p.o. with IVF until reliable bowel function
� Due to worsening acid reflux and nausea, recommend GI consult in the a.m. for possibility of upper GI pathology
[2024-10-30] MEDS: LAC HYDRIN, AM LACTIN LOTION 1 APPLIC TOPICAL (21:40)
[2024-10-30] MEDS: SINEMET 10-100 1 TABLET PO (21:40)
[2024-10-30] MEDS: CRESTOR 20 MG PO (21:40)
[2024-10-30 23:00] VITALS: BP 125/63
--- NOTE | 2024-10-31 00:05 | PTCARENOTE ---
Oral care was not performed on patient because she stated that it was her preference to brush her teeth in the morning.
[2024-10-31] MEDS: MERREM 500 MG IV ×4 (02:35→20:28)
[2024-10-31] MEDS: STERILE WATER FOR INJECTION 10 ML IV ×4 (02:35→20:29)
[2024-10-31] MEDS: ROBITUSSIN 400 MG PO (02:52)
[2024-10-31] MEDS: ZOFRAN 4 MG IV (07:27)
[2024-10-31] MEDS: DUONEB INH (07:30)
[2024-10-31] MEDS: PULMICORT INH (07:30)
[2024-10-31 07:48] VITALS: BP 115/71
[2024-10-31] MEDS: VITAMIN C 500 MG PO (07:57)
[2024-10-31] MEDS: XANAX 0.5 MG PO ×3 (07:57→20:49)
[2024-10-31] MEDS: SINEMET 10-100 2 TABLET PO ×2 (07:57→11:45)
[2024-10-31] MEDS: VITAMIN B1 50 MG PO (07:57)
[2024-10-31] MEDS: ASPIR LOW (ENTERIC COATED) 81 MG PO (07:57)
[2024-10-31] MEDS: HEPARIN 5000 UNITS SC ×2 (07:57→20:27)
[2024-10-31] MEDS: OCUVITE SOFTGEL 1 CAP PO ×2 (07:58→20:25)
[2024-10-31] MEDS: TYLENOL 1000 MG PO ×2 (07:58→20:25)
[2024-10-31] MEDS: THERAGRAN 1 TABLET PO (07:58)
[2024-10-31] MEDS: COREG 3.125 MG PO ×2 (07:58→20:31)
[2024-10-31] MEDS: PROTONIX 40 MG PO (07:58)
[2024-10-31] MEDS: CELEXA 20 MG PO (07:58)
[2024-10-31 07:59] LABS: Hematocrit 32.6 % (37.0-47.0); Hemoglobin 10.9 g/dL (12.0-16.0); Mean Corp Hgb Conc. 33.4 g/dL (33.0-37.0); Mean Corpuscular Volume 89.3 fL (81.0-99.0); Platelet Count 268 10^3/uL (130-400); Red Cell Dist. Width 14.0 % (11.5-14.5)
[2024-10-31] MEDS: SEROQUEL 25 MG PO ×2 (07:59→20:25)
[2024-10-31] MEDS: COLACE PO ×2 (07:59→19:28)
[2024-10-31] MEDS: PEPCID 20 MG PO ×2 (07:59→20:28)
[2024-10-31] MEDS: FOLVITE 0.4 MG PO (08:08)
[2024-10-31] MEDS: DESENEX/MITRAZOL/ZEASORB 1 APPLIC TOPICAL ×2 (08:08→20:37)
[2024-10-31] MEDS: REFRESH EYE DROPS (PF) 1 DROPS OPHTH (08:18)
[2024-10-31 09:09] LABS: ALT (SGPT) 14 U/L (0-35); AST (SGOT) 49 U/L (14-36); Alkaline Phosphatase 109 U/L (38-126); Blood Urea Nitrogen 12 mg/dl (7-17); Calcium 9.0 mg/dl (8.4-10.2); Carbon Dioxide 19 mmol/L (22-30); Chloride 114 mmol/L (98-107); Estimated Creatinine Clearance 58 ml/min; Glucose 79 mg/dl (70-99); Sodium 142 mmol/L (135-145); Total Protein 6.5 g/dl (6.3-8.2); eGFR > 60.00
[2024-10-31] MEDS: LR 1000 IV (11:04)
--- NOTE | 2024-10-31 11:08 | CON.GI ---
Addendum entered and electronically signed by Eric Knight MD 10/31/24 19:54:
I saw and examined the patient.
The residents note was reviewed and I agree with the note.
Comment:
Pt is a 84 y/o woman with a hx of multiple SBO/ multiple surgeries. she is admitted with lower abdominal pain. She did have constipation. no vomiting. seen by CR surgery who questioned if this was gastroenteritis. She had a CT that showed
possible enteritis, although not specific
abd: tender lower abdomen
impression:
lower abdominal pain, most likely secondary to adhesions
plan:
stool studies if diarrhea
clears
still presents more like psbo
if not better get obs series tomorrow
PPI
Original Note:
Consultation
-
Date/Time Consultation Requested:
Date/Time Consultation Performed: 10/31/2024
Requesting Provider: Grey Nguyen
Performing Provider: Beatrice Knight
Medical History
Chief Complaint / HPI
Chief Complaint: Abdominal pain
History of Present Illness:
Patient is an 84-year-old female, resides at [facility]. She was in her usual state of health until 1 week ago when she started to feel pain in her lower abdomen and associated episode of constipation. She said she took MiraLAX to
help with the constipation and then she passed hard stool for which she had to strain a lot and small amount of blood was noticed along with it. She said it relieved her pain to some extent but then she had an episode of diarrhea so she stopped
taking MiraLAX and then again had constipation which kept on alternating for the last 1 week. Then she started to feel pain that was sharp in the left lower quadrant which radiated across the lower abdomen into the epigastric region and then she
had this burning sensation in her epigastric region like she was having some kind of acid reflux. She said that the pain did radiate to her shoulder on the right side and sometimes down the leg on the left side.Patient reported to have usually
constipation but at times have diarrhea, yesterday she had bowel prep for enterography and has had diarrhea due to that. Since being admitted to the hospital she denies any blood in stool. Her last bowel movement this morning 3 liquidy, brown in
color moderate in amount stools. She did have nausea but there was no vomiting and patient reports that with all the small bowel obstructions she has she always had vomiting. She does report some bloating and abdominal distention. She says that
she had her last colonoscopy done 2 years ago, at the time they found colon polyps which she believes were resected.
Abdominal CT scan done in the ED was consistent with thickening of the bowel wall with no specific transition point and it was thought to be secondary to infection/inflammation/bowel mass. Based on discussions between the colorectal surgeon and the
radiologist it seems like the findings are more consistent with infection rather than any bowel mass.
She has history of multiple abdominal surgeries and small bowel obstructions x 3.
She says that she did not eat any raw meat, bad eggs, or yesterday's, clams, bad milk etc. as far as she remembers. She resides in a custodial and she sees somebody is sick at all times and she is not sure if she had any sick contacts or not.
Past Medical History
Past Medical History: Other (Parkinson's disease, small bowel obstruction x 3, chronic systolic congestive heart failure, history of coronary artery disease post PCI, COPD, s/p AICD, reflux disease, history of stroke with left-sided weakness)
Past Surgical History: Bowel Resection (Small bowel obstruction s/p bowel resection)
Social History
Tobacco: Non-Smoker
Alcohol: None
Drug: None
Living: Care Home ([place])
Family History
Family History: Reviewed & Not Pertinent
Allergies / Home Medications
Allergy/AdvReac Type Severity Reaction Status Date / Time
atorvastatin Allergy Unknown Verified 10/29/24 13:10
cephalexin Allergy Unknown Verified 10/29/24 13:10
ciprofloxacin Allergy Unknown Verified 10/29/24 13:10
codeine Allergy Unknown Verified 10/29/24 12:00
escitalopram (From Lexapro) Allergy Unknown Verified 10/29/24 13:10
hydromorphone (From Dilaudid) Allergy Hallucinati Verified 10/29/24 13:10
ons?
Iodinated Contrast Media Allergy Unknown Verified 10/29/24 12:00
levofloxacin Allergy Unknown Verified 10/29/24 13:10
metoclopramide (From Reglan) Allergy Unknown Verified 10/29/24 12:00
Penicillins Allergy Unknown Verified 10/29/24 12:00
Sulfa (Sulfonamide Allergy Unknown Verified 10/29/24 13:10
Antibiotics)
sulfamethoxazole Allergy Unknown Verified 10/29/24 13:10
trimethoprim Allergy Unknown Verified 10/29/24 13:10
venlafaxine Allergy Unknown Verified 10/29/24 13:10
�Medication �Instructions �Recorded
aspirin 81 mg tablet,delayed 81 mg PO DAILY Blood Clot 10/24/19
release Prevention/Tx
carvedilol 6.25 mg tablet 3.125 mg PO BID Blood Pressure 10/24/19
rosuvastatin 40 mg tablet (Crestor) 20 mg PO HS High Cholesterol 10/24/19
vitamins A,C,U-zkwr-[id number] 4,296 1 cap PO BID Supplement 10/24/19
mcg-226 mg-90 mg capsule
(PreserVision AREDS)
acetaminophen 325 mg tablet 650 mg PO Q6HPRN PRN mild pain 05/27/24
(Tylenol)
alprazolam 0.5 mg tablet (Xanax) 0.5 mg PO TID Mental Health/Anxiety 05/27/24
ascorbic acid (vitamin C) 500 mg 500 mg PO DAILY Supplement 05/27/24
tablet (Vitamin C)
benzonatate 200 mg capsule 200 mg PO TIDPRN PRN cough 05/27/24
carbidopa 10 mg-levodopa 100 mg 1 tab PO HS Neurological Condition 05/27/24
tablet
carbidopa 10 mg-levodopa 100 mg 2 tab PO BID Neurological Condition 05/27/24
tablet
citalopram 20 mg tablet (Celexa) 20 mg PO DAILY Mental 05/27/24
Health/Anxiety
cranberry fruit 450 mg tablet 450 mg PO DAILY Urinary Issue 05/27/24
(cranberry)
docusate sodium 100 mg capsule 100 mg PO BID Gastrointestinal 05/27/24
(Colace) Issue
famotidine 20 mg tablet (Pepcid) 40 mg PO HS Gastrointestinal Issue 05/27/24
ferrous sulfate 325 mg (65 mg 325 mg PO DAILY Supplement 05/27/24
iron) tablet
ipratropium 0.5 mg-albuterol 3 mg 3 ml inhalation R Q6HPRN PRN sob 05/27/24
(2.5 mg base)/3 mL nebulization
soln
ipratropium 0.5 mg-albuterol 3 mg 3 ml inhalation R TID 05/27/24
(2.5 mg base)/3 mL nebulization Lung/Breathing Issues
soln
methenamine hippurate 1 gram tablet 1 g PO BID Urinary Issue 05/27/24
polyethylene glycol 3350 17 gram 17 g PO DAILY Gastrointestinal 05/27/24
oral powder packet (Miralax) Issue
polyethylene glycol 400 0.25 % eye 1 drp ophthalmic (eye) QID both 05/27/24
drops (Blink Tears) eyes
quetiapine 25 mg tablet (Seroquel) 25 mg PO BID Mental Health/Anxiety 05/27/24
sodium phosphates 19 gram-7 118 ml UT DAILYPRN PRN if no bm 05/27/24
gram/118 mL enema (Fleet Enema) aftr dulolcax
therapeutic multivitamin 1 tab PO DAILY Supplement 05/27/24
vibegron 75 mg tablet (Gemtesa) 75 mg PO DAILY Urinary Issue 05/27/24
acetaminophen 500 mg tablet 1,000 mg PO BID 10/29/24
(Tylenol Extra Strength)
aluminum-mag hydroxide-simethicone 30 ml PO [id number] PRN heartburn 10/29/24
400 mg-400 mg-40 mg/5 mL oral susp
(Maalox Maximum Strength)
ammonium lactate 12 % lotion 1 applic topical HS b/l feet 10/29/24
bisacodyl 10 mg rectal suppository 10 mg UT DAILYPRN PRN if no bm 10/29/24
(Dulcolax (bisacodyl)) aftr mom
budesonide 0.5 mg/2 mL suspension 0.5 mg inhalation R BID 10/29/24
for nebulization
dexlansoprazole 60 mg 60 mg PO DAILY 10/29/24
capsule,biphase delayed release
(Dexilant)
folic acid 400 mcg tablet 0.4 mg PO DAILY 10/29/24
guaifenesin 400 mg tablet (Mucus 400 mg PO [id number] PRN cough 10/29/24
Relief)
magnesium hydroxide 400 mg/5 mL 2,400 mg PO [id number] PRN 10/29/24
oral suspension (Milk of Magnesia) constipation
thiamine HCl (vitamin B1) 50 mg 50 mg PO DAILY 10/29/24
tablet
tramadol 50 mg tablet 50 mg PO BIDPRN PRN moderate pain 10/29/24
Review of Systems
-
All other systems: A 12 pt ROS was Negative except as stated above in HPI
Vital Signs
Temp Pulse Resp BP Pulse Ox
97.9 F 83 16 115/71 98
10/31/24 07:48 10/31/24 07:48 10/31/24 07:48 10/31/24 07:48 10/31/24 07:48
Physical Exam
Exam
General: Well Developed, Well Nourished and No Apparent Distress
HEENT: Anicteric and Other (On 4 L of oxygen)
Respiratory: Clear and Other (Decreased breath sounds bilaterally at lung bases)
Cardiac: S1/S2 and Regular Rhythm
GI: Soft, Normal Bowel Sounds, Tender (Tenderness in the left lower quadrant, right lower quadrant, epigastric region) and Other (Scar liban in lower midline)
Musculoskeletal: No Clubbing, No Cyanosis and No Edema
Skin: Warm and Dry
Neuro: AO x 3 and Nonfocal/Grossly Intact
Psych: Calm
Results
WBC 8.2 10^3/uL (4.8-10.8) 10/31/24 07:21
Hgb 10.9 g/dL (12.0-16.0) L 10/31/24 07:21
Hct 32.6 % (37.0-47.0) L 10/31/24 07:21
MCV 89.3 fL (81.0-99.0) 10/31/24 07:21
Plt Count 268 10^3/uL (130-400) 10/31/24 07:21
Absolute Neuts (auto) 6.4 10^3/uL (1.4-6.5) 10/29/24 12:18
Sodium 142 mmol/L (135-145) 10/31/24 07:21
Potassium mmol/L (3.5-5.1) 10/31/24 07:21
Chloride 114 mmol/L (98-107) H 10/31/24 07:21
Carbon Dioxide 19 mmol/L (22-30) L 10/31/24 07:21
BUN 12 mg/dl (7-17) 10/31/24 07:21
Creatinine 0.6 mg/dL (0.6-1.0) 10/31/24 07:21
Calcium 9.0 mg/dl (8.4-10.2) 10/31/24 07:21
Total Bilirubin 0.9 mg/dl (0.2-1.3) 10/31/24 07:21
AST 49 U/L (14-36) H 10/31/24 07:21
ALT 14 U/L (0-35) 10/31/24 07:21
Alkaline Phosphatase 109 U/L (38-126) 10/31/24 07:21
Lipase 96 U/L (23-300) 10/29/24 12:18
Diagnostic Image Results:
2019
Upper GI and small bowel follow through
IMPRESSION:
Small hiatal hernia without demonstrable gastroesophageal reflux.
Gastric mucosal folds at least top normal. Cannot exclude gastritis.
No findings to suggest upper gastrointestinal tract mass or ulcer.
Unremarkable appearance of small bowel. Apparent prior distal small bowel/proximal colonic surgery with site of anastomosis not well visualized.
Prior GI Procedures:
EGD: None
Colonoscopy: None
Assessment / Plan
-
Impression
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 Admitted with complaints of abdominal pain associated with nausea and constipation. GI consulted for suspected infectious
gastroenteritis/colitis
Assessment/plan
Reports 9/10 bandlike pain radiating from left lower quadrant to right lower quadrant and then resulting in heartburn
Pain comes and goes in waves associated with nausea
Currently passing stool without any blood
CRP less than 5
Abdominal/pelvis CT reports 5 cm segment of bowel with circumferential wall thickening and luminal narrowing as well as adjacent hazy attenuation, which may be infectious, inflammatory, or neoplastic. There is also a segment of bowel the pelvis with
haustral markings suggesting possibly representing the cecum, with associated mild wall thickening.
Colorectal surgery on board-bowel wall thickening less likely to be a bowel mass/CRP less than 5 suggests against inflammatory thickening/suspect possible gastroenteritis, worsening acid reflux
Follow stool studies
Follow fecal calprotectin
Monitor bowel function
Continue PPI
Plan endoscopy
-
-
Thank you for consultation and allowing me to participate in the patient's care. Please call the salesperson pets and pet supplies GI physician during the after hours with any questions or concerns.
[2024-10-31] MEDS: REFRESH EYE DROPS (PF) 1 DROPS BOTH EYES ×3 (13:17→20:49)
--- NOTE | 2024-10-31 13:39 | W.PN.HOSP.TC ---
Today's Communication/Plan
-
abx
ivf
adat
gi consulted
Assessment / Plan
Assessment / Plan
Physical Exam
General: Well Developed, Well Nourished and No Apparent Distress
HEENT: NormoCephalic, Moist mucous membranes and Atraumatic
Respiratory: Clear
Cardiac: S1/S2 and Regular Rhythm; No Murmur or Rub
GI: Soft, Non Distended and Other (surgical scar from previous abd sx); No Organomegaly
Rectal: Deferred by Provider
Musculoskeletal: No Clubbing, No Cyanosis and No Edema
Skin: No Rash
Neuro: Awake, Alert, Oriented and Nonfocal/grossly intact
#Abdominal Pain
#?Colitis - most likely viral gastroenteritis
-IVF
-Pain regimen
-Abx
-0-as per CRS - does nt appear to have mass
-Maintain patient on empiric Unasyn for now
-Colorectal surgery requested to evaluate patient with history of small bowel resection and previous history of abdominal issue
-GI consulted
- CEA, CRP, calprotectin
-PPI
# Parkinson's disease
- Resume home dose of Sinemet
#chronic diastolic congestive heart failure
# History of AICD placement
- No signs of volume overload
- Patient on GDMT with aspirin/statin/Coreg.
- Not on regular dose of diuretic
#history of coronary disease status post PCI
#COPD
#GERD - PPI
#history of stroke and left-sided weakness
DVT PPX - lovenox
FUll code
Total time spent on today's encounter was 51 minutes which included time spent in counseling the patient/family regarding diagnosis and treatment plan as listed above, goals of care, and symptom management. Case was discussed with nursing staff,
specialists, and care coordinators/case management. All labs and imaging personally reviewed by me. Remainder the time spent in detailed review of previous records, lab data, imaging, and other medical provider documentation.
Anticipated Discharge: Today
Subjective/Interval History
-
Date of Service: October 31, 2024
abd pain improving
Objective Data
-
Labs:
Laboratory Results
10/31/24
07:21
WBC 8.2
Hgb 10.9 L
Hct 32.6 L
Plt Count 268
Sodium 142
Potassium
Chloride 114 H
Carbon Dioxide 19 L
BUN 12
Creatinine 0.6
Glucose 79
Calcium 9.0
Total Bilirubin 0.9
AST 49 H
ALT 14
Alkaline Phosphatase 109
Vital Signs:
Vital Signs
Temp Pulse Resp BP Pulse Ox
97.9 F 83 16 115/71 98
10/31/24 07:48 10/31/24 07:48 10/31/24 07:48 10/31/24 07:48 10/31/24 07:48
I&O
10/30/24 10/31/24 11/01/24
06:59 06:59 06:59
Intake Total 980 / 980 600 / 600
Output Total 200 / 200 1000 / 1000
Balance -200 / -200 -20 / -20 600 / 600
Review of Systems
-
History Source: Patient
All other systems: Not reviewed unless documented
Data Reviewed
-
CT Scan: Report Reviewed by me
Labs: Labs Reviewed by me
[2024-10-31] MEDS: DUONEB 3 ML INH ×2 (15:27→19:18)
[2024-10-31 15:34] VITALS: BP 130/72
[2024-10-31] MEDS: DILAUDID 0.5 MG IV (18:07)
[2024-10-31 18:35] LABS: CA 19-9 4 U/mL (<=35)
[2024-10-31] MEDS: PULMICORT 0.5 MG INH (19:17)
[2024-10-31] MEDS: SINEMET 10-100 1 TABLET PO (20:49)
[2024-10-31] MEDS: CRESTOR 20 MG PO (20:49)
[2024-10-31] MEDS: LAC HYDRIN, AM LACTIN LOTION 1 APPLIC TOPICAL (21:56)
[2024-10-31 23:20] VITALS: BP 122/47
[2024-11-01] MEDS: MERREM 500 MG IV ×4 (02:08→19:47)
[2024-11-01] MEDS: STERILE WATER FOR INJECTION 10 ML IV ×4 (02:09→19:47)
[2024-11-01 05:07] LABS: Hematocrit 33.3 % (37.0-47.0); Hemoglobin 10.7 g/dL (12.0-16.0); Mean Corp Hgb Conc. 32.1 g/dL (33.0-37.0); Mean Corpuscular Volume 92.5 fL (81.0-99.0); Platelet Count 301 10^3/uL (130-400); Red Cell Dist. Width 14.1 % (11.5-14.5)
[2024-11-01] MEDS: LR 1000 IV (05:29)
[2024-11-01 05:41] LABS: ALT (SGPT) < 10 U/L (0-35); AST (SGOT) 31 U/L (14-36); Albumin 3.6 g/dl (3.5-5.0); Alkaline Phosphatase 75 U/L (38-126); Blood Urea Nitrogen 11 mg/dl (7-17); Calcium 8.9 mg/dl (8.4-10.2); Carbon Dioxide 29 mmol/L (22-30); Chloride 108 mmol/L (98-107); Estimated Creatinine Clearance 50 ml/min; Glucose 87 mg/dl (70-99); Potassium 4.0 mmol/L (3.5-5.1); Sodium 141 mmol/L (135-145); Total Protein 5.9 g/dl (6.3-8.2); eGFR > 60.00
[2024-11-01 06:00] VITALS: BMI 31.4
[2024-11-01] MEDS: PULMICORT 0.5 MG INH ×2 (07:03→19:49)
[2024-11-01] MEDS: DUONEB 3 ML INH ×2 (07:03→19:49)
[2024-11-01 07:22] VITALS: BP 156/82
--- NOTE | 2024-11-01 07:52 | W.PN.GI.CBS2 ---
Today's Communication / Plan
-
advance diet
Assessment / Plan
-
Impression
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 Admitted with complaints of abdominal pain associated with nausea and constipation. GI consulted for suspected infectious
gastroenteritis/colitis
Assessment/plan
abd d/c
resolved gastroenteritis (no more diarrhea)
plan:
1. advance diet to low residue
2. I still think this is all due to adhesive disease from prior surgeries, did d/w surgery
Subjective
Subjective
Date of Service: November 01, 2024
Pt without diarrhea, no nausea, vomiting, tolerated clears per nurse
Objective
Data Reviewed
Laboratory Data:
Laboratory Results
11/01/24 04:47
11/01/24 04:47
Laboratory Results
Total Bilirubin 0.4 mg/dl (0.2-1.3) 11/01/24 04:47
AST 31 U/L (14-36) 11/01/24 04:47
ALT < 10 U/L (0-35) 11/01/24 04:47
Alkaline Phosphatase 75 U/L (38-126) 11/01/24 04:47
Lipase 96 U/L (23-300) 10/29/24 12:18
Vital Signs and I&O:
Vital Signs
Temp Pulse Resp BP Pulse Ox
97.8 F 85 18 156/82 95
11/01/24 07:22 11/01/24 07:22 11/01/24 07:22 11/01/24 07:22 11/01/24 07:22
I&O
10/31/24 11/01/24 11/02/24
06:59 06:59 06:59
Intake Total 980 / 980 1140 / 1140
Output Total 1000 / 1000
Balance -20 / -20 1140 / 1140
Physical Exam
Physical Exam
GI: Soft, Non Distended and Tender (mild tenderness left lower, left mid)
Neuro: Non Focal
[2024-11-01] MEDS: SEROQUEL 25 MG PO ×2 (08:11→19:49)
[2024-11-01] MEDS: SINEMET 10-100 2 TABLET PO ×2 (08:11→12:25)
[2024-11-01] MEDS: CELEXA 20 MG PO (08:11)
[2024-11-01] MEDS: ASPIR LOW (ENTERIC COATED) 81 MG PO (08:11)
[2024-11-01] MEDS: FOLVITE 0.4 MG PO (08:11)
[2024-11-01] MEDS: PEPCID 20 MG PO ×2 (08:11→19:49)
[2024-11-01] MEDS: VITAMIN C 500 MG PO (08:12)
[2024-11-01] MEDS: VITAMIN B1 50 MG PO (08:12)
[2024-11-01] MEDS: THERAGRAN 1 TABLET PO (08:12)
[2024-11-01] MEDS: PROTONIX 40 MG PO (08:12)
[2024-11-01] MEDS: OCUVITE SOFTGEL 1 CAP PO ×2 (08:13→19:49)
[2024-11-01] MEDS: REFRESH EYE DROPS (PF) 1 DROPS BOTH EYES ×4 (08:13→22:18)
[2024-11-01] MEDS: TYLENOL 1000 MG PO ×2 (08:13→19:49)
[2024-11-01] MEDS: XANAX 0.5 MG PO ×3 (08:13→22:18)
[2024-11-01] MEDS: COREG 3.125 MG PO ×2 (08:13→22:21)
[2024-11-01] MEDS: HEPARIN 5000 UNITS SC ×2 (08:14→19:46)
[2024-11-01] MEDS: DESENEX/MITRAZOL/ZEASORB 1 APPLIC TOPICAL ×2 (08:17→19:45)
[2024-11-01] MEDS: COLACE PO ×2 (08:17→19:45)
[2024-11-01] MEDS: ROBITUSSIN 400 MG PO ×2 (08:21→21:19)
[2024-11-01] MEDS: DILAUDID 0.5 MG IV (08:35)
--- NOTE | 2024-11-01 12:15 | W.PN.HOSP.TC ---
Today's Communication/Plan
-
adv to LRD
supportive care
Assessment / Plan
Assessment / Plan
Physical Exam
General: Well Developed, Well Nourished and No Apparent Distress
HEENT: NormoCephalic, Moist mucous membranes and Atraumatic
Respiratory: Clear
Cardiac: S1/S2 and Regular Rhythm; No Murmur or Rub
GI: Soft, Non Distended and Other (surgical scar from previous abd sx); No Organomegaly
Rectal: Deferred by Provider
Musculoskeletal: No Clubbing, No Cyanosis and No Edema
Skin: No Rash
Neuro: Awake, Alert, Oriented and Nonfocal/grossly intact
#Abdominal Pain
#?Colitis - most likely viral gastroenteritis + adhesions
-IVF
-Pain regimen
-Abx
- Adv to LRD
-as per CRS - does nt appear to have mass
-Maintain patient on empiric Unasyn for now
-GI consulted - NTD
- CEA, CRP neg; F/u calprotectin
-PPI
# Parkinson's disease
- Resume home dose of Sinemet
#chronic diastolic congestive heart failure
# History of AICD placement
- No signs of volume overload
- Patient on GDMT with aspirin/statin/Coreg.
- Not on regular dose of diuretic
#history of coronary disease status post PCI
#COPD
#GERD - PPI
#history of stroke and left-sided weakness
DVT PPX - lovenox
FUll code
Anticipated Discharge: Within 24 hours
Subjective/Interval History
-
Date of Service: November 01, 2024
abd pain slowly improving, no diarrhea
Objective Data
-
Labs:
Laboratory Results
11/01/24
04:47
WBC 6.9
Hgb 10.7 L
Hct 33.3 L
Plt Count 301
Sodium 141
Potassium 4.0
Chloride 108 H
Carbon Dioxide 29
BUN 11
Creatinine 0.7
Glucose 87
Calcium 8.9
Total Bilirubin 0.4
AST 31
ALT < 10
Alkaline Phosphatase 75
Vital Signs:
Vital Signs
Temp Pulse Resp BP Pulse Ox
97.8 F 85 18 156/82 95
11/01/24 07:22 11/01/24 08:13 11/01/24 07:22 11/01/24 08:13 11/01/24 07:22
I&O
10/31/24 11/01/24 11/02/24
06:59 06:59 06:59
Intake Total 980 / 980 1140 / 1140
Output Total 1000 / 1000
Balance -20 / -20 1140 / 1140
Review of Systems
-
History Source: Patient
All other systems: Not reviewed unless documented
Physical Exam
-
General: No Apparent Distress
Data Reviewed
-
CT Scan: Report Reviewed by me
Labs: Labs Reviewed by me
[2024-11-01] MEDS: TYLENOL 650 MG PO (13:35)
--- NOTE | 2024-11-01 13:52 | CM ---
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
Plan: Possible discharge tomorrow to SNF
[facility] report: [phone] [phone]
[facility]
[2024-11-01 15:06] VITALS: BP 91/49
--- NOTE | 2024-11-01 17:35 | W.PN.CRS1 ---
Today's Communication / Plan
-
As above
Assessment/Plan
-
84-year-old female with PMH of Parkinson's, CHF, COPD, CAD/PCI, GERD, CVA (left-sided weakness), AICD (not MR-compatible per patient), history of SBO's requiring 3 abdominal surgeries with bowel resections who presents with left-sided abdominal pain
that radiates across the abdomen in a band and extends up to the right shoulder. Worse over the last 2 to 3 days. Over the last 2 to 3 months, she has been having worsening acid reflux associated with nausea. This acute episode is also associated
with nausea, but no vomiting. Does not remember her last endoscopy. In the ED, WBC 9.0, LFTs and lipase normal, CT scan with concern of 5 cm segment of bowel wall thickening, uncertain if this is colon or small bowel.
AFVSS
WBC 7.3
�Abdominal pain associated with bowel wall thickening
�5 cm segment of small bowel thickening appears improved on repeat CTE, making malignancy or stricture much less likely; no concern for adhesive bowel obstruction at this point; neither of her CT scans showed dilated proximal bowel or transition
point
�Inflammatory marker and tumor markers negative; stool cultures and C. difficile negative
�At this point, seems most likely related to viral infectious etiology
�Acid reflux, possible duodenitis on CT
�Appreciate GI
�Continue supportive care with pain control; no indications for antibiotics at this time from my standpoint
�No indications for surgery at this time; colorectal will sign off; patient can follow-up with me in 4 or so weeks for repeat imaging if necessary
�Appreciate hospitalist
Subjective Data
Subjective Data
Date of Service: November 01, 2024
Still complains of acid reflux and intermittent abdominal pains, but tolerating oral intake. Was told by another doctor this was likely a bowel obstruction, but states that this does not feel like her usual bowel obstructions in the past.
Objective Data
-
Vital Signs
Temp Pulse Resp BP Pulse Ox
97.8 F 76 17 91/49 95
11/01/24 15:06 11/01/24 15:06 11/01/24 15:06 11/01/24 15:06 11/01/24 15:06
Intake & Output
10/31/24 11/01/24 11/02/24
06:59 06:59 06:59
Intake Total 980 / 980 1140 / 1140 480 / 480
Output Total 1000 / 1000
Balance -20 / -20 1140 / 1140 480 / 480
Intake:
Oral fluids 480 / 480 540 / 540 480 / 480
IV fluids (Total) 500 / 500 600 / 600
Output:
Urine, Voided 1000 / 1000
Other:
Number of approximated LARGE 1
amounts of urine
How many times incontinent 1
MODERATE amount urine
How many times incontinent 3 2 2
SATURATED amount urine
Number of unmeasured liquid
stools
Rectum 3 3
Lab Results
11/01/24 04:47
11/01/24 04:47
Physical Exam
-
General: No Acute Distress and AOx3
HEENT: Grossly Normal
Abdomen: Soft, Non Distended, Non Tender (Mildly tender in the left lower to mid abdomen, significantly improved from 2 days ago), No Guarding and No Rebound
Neurological: Other (Tremulous)
[2024-11-01] MEDS: TESSALON PERLES 200 MG PO (18:25)
[2024-11-01] MEDS: COREG PO (19:54)
[2024-11-01] MEDS: SINEMET 10-100 1 TABLET PO (22:18)
[2024-11-01] MEDS: CRESTOR 20 MG PO (22:18)
[2024-11-01] MEDS: LAC HYDRIN, AM LACTIN LOTION 1 APPLIC TOPICAL (22:19)
[2024-11-01 23:00] VITALS: BP 137/62
[2024-11-02] MEDS: STERILE WATER FOR INJECTION 10 ML IV ×2 (02:52→08:02)
[2024-11-02] MEDS: MERREM 500 MG IV ×2 (02:52→08:02)
[2024-11-02 06:00] VITALS: BMI 31.4
[2024-11-02] MEDS: PULMICORT 0.5 MG INH (07:19)
[2024-11-02] MEDS: DUONEB 3 ML INH (07:19)
[2024-11-02 07:23] LABS: Hematocrit 34.5 % (37.0-47.0); Hemoglobin 11.3 g/dL (12.0-16.0); Mean Corp Hgb Conc. 32.8 g/dL (33.0-37.0); Mean Corpuscular Volume 91.5 fL (81.0-99.0); Platelet Count 283 10^3/uL (130-400); Red Cell Dist. Width 14.4 % (11.5-14.5)
[2024-11-02 07:30] VITALS: BP 157/78
[2024-11-02 07:48] LABS: ALT (SGPT) < 10 U/L (0-35); AST (SGOT) 30 U/L (14-36); Albumin 3.7 g/dl (3.5-5.0); Alkaline Phosphatase 79 U/L (38-126); Blood Urea Nitrogen 19 mg/dl (7-17); Calcium 9.6 mg/dl (8.4-10.2); Carbon Dioxide 26 mmol/L (22-30); Chloride 108 mmol/L (98-107); Estimated Creatinine Clearance 49 ml/min; Glucose 109 mg/dl (70-99); Potassium 4.3 mmol/L (3.5-5.1); Sodium 139 mmol/L (135-145); Total Protein 6.1 g/dl (6.3-8.2); eGFR > 60.00
[2024-11-02] MEDS: VITAMIN C 500 MG PO (08:03)
[2024-11-02] MEDS: OCUVITE SOFTGEL 1 CAP PO (08:03)
[2024-11-02] MEDS: PROTONIX 40 MG PO (08:03)
[2024-11-02] MEDS: PEPCID 20 MG PO (08:03)
[2024-11-02] MEDS: ASPIR LOW (ENTERIC COATED) 81 MG PO (08:03)
[2024-11-02] MEDS: XANAX 0.5 MG PO ×2 (08:03→16:11)
[2024-11-02] MEDS: VITAMIN B1 50 MG PO (08:03)
[2024-11-02] MEDS: COLACE 100 MG PO (08:03)
[2024-11-02] MEDS: THERAGRAN 1 TABLET PO (08:03)
[2024-11-02] MEDS: SEROQUEL 25 MG PO (08:03)
[2024-11-02] MEDS: CELEXA 20 MG PO (08:03)
[2024-11-02] MEDS: FOLVITE 0.4 MG PO (08:03)
[2024-11-02] MEDS: TYLENOL 1000 MG PO (08:04)
[2024-11-02] MEDS: SINEMET 10-100 2 TABLET PO ×2 (08:04→13:13)
[2024-11-02] MEDS: REFRESH EYE DROPS (PF) 1 DROPS BOTH EYES ×2 (08:05→13:12)
[2024-11-02] MEDS: DESENEX/MITRAZOL/ZEASORB 1 APPLIC TOPICAL (08:09)
[2024-11-02] MEDS: HEPARIN 5000 UNITS SC (08:09)
[2024-11-02] MEDS: COREG 3.125 MG PO (08:11)
[2024-11-02] MEDS: TESSALON PERLES 200 MG PO (08:34)
--- NOTE | 2024-11-02 11:58 | CM ---
Addendum entered by Ella Davidson 11/02/24 12:10:
CM spoke with pt's daughter; IMM reviewed and she gave verbal consent.
Ambulance transport being requested.
Original Note:
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 Updated records in [facility].
Dr. Nguyen advised CM that patient will be cleared for discharge today.
Plan: Return to [facility] today
[facility] report: [phone] [phone]
[facility]
--- NOTE | 2024-11-02 14:02 | W.PN.HOSP.TC ---
Addendum entered and electronically signed by Grey Nguyen MD 11/03/24 16:29:
[id number]
Addendum entered and electronically signed by Grey Nguyen MD 11/02/24 14:06:
Of note, family was requesting cxr for wheezing although no wheezing or hypoxia noted on exam. imaging not remarkable for any acute findings.
Original Note:
Today's Communication/Plan
-
F/u lab work outpt
F/u PCP, CRS, GI outpatient
Assessment / Plan
Assessment / Plan
Physical Exam
General: Well Developed, Well Nourished and No Apparent Distress
HEENT: NormoCephalic, Moist mucous membranes and Atraumatic
Respiratory: Clear
Cardiac: S1/S2 and Regular Rhythm; No Murmur or Rub
GI: Soft, Non Distended and Other (surgical scar from previous abd sx); No Organomegaly
Rectal: Deferred by Provider
Musculoskeletal: No Clubbing, No Cyanosis and No Edema
Skin: No Rash
Neuro: Awake, Alert, Oriented and Nonfocal/grossly intact
#Abdominal Pain
#possibly viral gastroenteritis + adhesions
-IVF
-Pain regimen
-Abx can be dced - no role and confirmed by specialists
- Adv to LRD - tolerating well
-as per CRS - does nt appear to have mass
-Maintain patient on empiric Unasyn for now
-GI consulted - NTD
- CEA, CRP neg; F/u calprotectin
-PPI
# Parkinson's disease
- Resume home dose of Sinemet
#chronic diastolic congestive heart failure
# History of AICD placement
- No signs of volume overload
- Patient on GDMT with aspirin/statin/Coreg.
- Not on regular dose of diuretic
#history of coronary disease status post PCI
#COPD
#GERD - PPI
#history of stroke and left-sided weakness
DVT PPX - lovenox
FUll code
Important to note: patient has diffuse pain upon light palpation throughout the body including all extremities; i suspect there is a psych component as well
More than 30 minutes spent in discharge including
Final examination of the patient
Summarizing hospital stay
Instructions for continuing care to all relevant caregivers
Preparation of discharge records, prescriptions, and referral forms
Total time spent (in minutes):36
Anticipated Discharge: Today
Subjective/Interval History
-
Date of Service: November 02, 2024
no acute events overnight
Objective Data
-
Labs:
Laboratory Results
11/02/24
06:39
WBC 7.6
Hgb 11.3 L
Hct 34.5 L
Plt Count 283
Sodium 139
Potassium 4.3
Chloride 108 H
Carbon Dioxide 26
BUN 19 H
Creatinine 0.7
Glucose 109 H
Calcium 9.6
Total Bilirubin 0.4
AST 30
ALT < 10
Alkaline Phosphatase 79
Vital Signs:
Vital Signs
Temp Pulse Resp BP Pulse Ox
98.1 F 74 20 157/78 97
11/02/24 07:30 11/02/24 08:11 11/02/24 07:30 11/02/24 08:11 11/02/24 11:31
I&O
11/01/24 11/02/24 11/03/24
06:59 06:59 06:59
Intake Total 1140 / 1140 960 / 960
Balance 1140 / 1140 960 / 960
Review of Systems
-
History Source: Patient
All other systems: Not reviewed unless documented
Physical Exam
-
General: No Apparent Distress
Data Reviewed
-
CT Scan: Report Reviewed by me
Labs: Labs Reviewed by me
--- NOTE | 2024-11-02 14:02 | W.PN.GI.CBS2 ---
Today's Communication / Plan
-
no further inpatient evaluation
Assessment / Plan
-
Impression
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 Admitted with complaints of abdominal pain associated with nausea and constipation. GI consulted for suspected infectious
gastroenteritis/colitis
Assessment/plan
abd d/c
resolved gastroenteritis (no more diarrhea)
plan:
1. Tolerated diet
2. 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
will sign off call with questions
Subjective
Subjective
Date of Service: November 02, 2024
Pt ate whole lunch complains of pain everywhere
Objective
Data Reviewed
Laboratory Data:
Laboratory Results
11/02/24 06:39
11/02/24 06:39
Laboratory Results
Total Bilirubin 0.4 mg/dl (0.2-1.3) 11/02/24 06:39
AST 30 U/L (14-36) 11/02/24 06:39
ALT < 10 U/L (0-35) 11/02/24 06:39
Alkaline Phosphatase 79 U/L (38-126) 11/02/24 06:39
Lipase 96 U/L (23-300) 10/29/24 12:18
Vital Signs and I&O:
Vital Signs
Temp Pulse Resp BP Pulse Ox
98.1 F 74 20 157/78 97
11/02/24 07:30 11/02/24 08:11 11/02/24 07:30 11/02/24 08:11 11/02/24 11:31
I&O
11/01/24 11/02/24 11/03/24
06:59 06:59 06:59
Intake Total 1140 / 1140 960 / 960
Balance 1140 / 1140 960 / 960
Physical Exam
Physical Exam
GI: Soft and Tender (mild tenderness not localized)
--- NOTE | 2024-11-02 14:05 | W.DS.TRANS ---
DC Summary - [employer]
-
Discharge Instructions:
Discharge Diagnosis/Procedures Abdominal pain associated with bowel wall
thickening
Diffuse pain throughout the body
Diet Low Residue,Low Fat,Low Cholesterol,2 Gram
Sodium,Restrict fluids to 48 oz
Activity As tolerated
Blood Work cbc, cmp in 3-5 days with pcp
Others Tests as per GI and colorectal surgery outpatient
Instructions:
Stand-Alone Forms:
Changes to Home Medications: No
Discharge Medications:
DC Medications w/original date entered in [employer]
aspirin 81 mg tablet,delayed release 81 mg PO DAILY Blood Clot Prevention/Tx 10/24/19
carvedilol 6.25 mg tablet 3.125 mg PO BID Blood Pressure 10/24/19
rosuvastatin 40 mg tablet (Crestor) 20 mg PO HS High Cholesterol 10/24/19
vitamins A,C,Z-ykut-eidhjb 4,296 mcg-226 mg-90 mg capsule (PreserVision AREDS) 1 cap PO BID Supplement 10/24/19
acetaminophen 325 mg tablet (Tylenol) 650 mg PO Q6HPRN PRN mild pain 05/27/24
alprazolam 0.5 mg tablet (Xanax) 0.5 mg PO TID Mental Health/Anxiety 05/27/24
ascorbic acid (vitamin C) 500 mg tablet (Vitamin C) 500 mg PO DAILY Supplement 05/27/24
benzonatate 200 mg capsule 200 mg PO TIDPRN PRN cough 05/27/24
carbidopa 10 mg-levodopa 100 mg tablet 1 tab PO HS Neurological Condition 05/27/24
carbidopa 10 mg-levodopa 100 mg tablet 2 tab PO BID Neurological Condition 05/27/24
citalopram 20 mg tablet (Celexa) 20 mg PO DAILY Mental Health/Anxiety 05/27/24
cranberry fruit 450 mg tablet (cranberry) 450 mg PO DAILY Urinary Issue 05/27/24
docusate sodium 100 mg capsule (Colace) 100 mg PO BID Gastrointestinal Issue 05/27/24
famotidine 20 mg tablet (Pepcid) 40 mg PO HS Gastrointestinal Issue 05/27/24
ferrous sulfate 325 mg (65 mg iron) tablet 325 mg PO DAILY Supplement 05/27/24
ipratropium 0.5 mg-albuterol 3 mg (2.5 mg base)/3 mL nebulization soln 3 ml inhalation R Q6HPRN PRN sob 05/27/24
ipratropium 0.5 mg-albuterol 3 mg (2.5 mg base)/3 mL nebulization soln 3 ml inhalation R TID Lung/Breathing Issues 05/27/24
methenamine hippurate 1 gram tablet 1 g PO BID Urinary Issue 05/27/24
polyethylene glycol 3350 17 gram oral powder packet (Miralax) 17 g PO DAILY Gastrointestinal Issue 05/27/24
polyethylene glycol 400 0.25 % eye drops (Blink Tears) 1 drp ophthalmic (eye) QID both eyes 05/27/24
quetiapine 25 mg tablet (Seroquel) 25 mg PO BID Mental Health/Anxiety 05/27/24
sodium phosphates 19 gram-7 gram/118 mL enema (Fleet Enema) 118 ml SC DAILYPRN PRN if no bm aftr dulolcax 05/27/24
therapeutic multivitamin 1 tab PO DAILY Supplement 05/27/24
vibegron 75 mg tablet (Gemtesa) 75 mg PO DAILY Urinary Issue 05/27/24
acetaminophen 500 mg tablet (Tylenol Extra Strength) 1,000 mg PO BID 10/29/24
aluminum-mag hydroxide-simethicone 400 mg-400 mg-40 mg/5 mL oral susp (Maalox Maximum Strength) 30 ml PO [id number] PRN heartburn 10/29/24
ammonium lactate 12 % lotion 1 applic topical HS b/l feet 10/29/24
bisacodyl 10 mg rectal suppository (Dulcolax (bisacodyl)) 10 mg SC DAILYPRN PRN if no bm aftr mom 10/29/24
budesonide 0.5 mg/2 mL suspension for nebulization 0.5 mg inhalation R BID 10/29/24
dexlansoprazole 60 mg capsule,biphase delayed release (Dexilant) 60 mg PO DAILY 10/29/24
folic acid 400 mcg tablet 0.4 mg PO DAILY 10/29/24
guaifenesin 400 mg tablet (Mucus Relief) 400 mg PO [id number] PRN cough 10/29/24
magnesium hydroxide 400 mg/5 mL oral suspension (Milk of Magnesia) 2,400 mg PO [id number] PRN constipation 10/29/24
thiamine HCl (vitamin B1) 50 mg tablet 50 mg PO DAILY 10/29/24
tramadol 50 mg tablet 50 mg PO BIDPRN PRN moderate pain 10/29/24
Home Medication Changes
na
Pending Results: Yes
[2024-11-02] MEDS: STERILE WATER FOR INJECTION IV (14:27)
[2024-11-02 15:20] VITALS: BP 158/83
[2024-11-02 15:29] VITALS: BP 158/83
[2024-11-02 19:41] LABS: Calprotectin, Fecal 120 ug/g (<=49)
== END 2024-11-02 16:41 | DRG 394 ==
LOC: 3 WEST ACU 18:26
PROVIDERS: ADMITTING PHYSICIAN Hospitalist; ATTENDING PHYSICIAN Internal Medicine; CONSULT PHYSICIAN Internal Medicine; CONSULT PHYSICIAN Surgery; EMERGENCY PHYSICIAN Emergency Medicine; FAMILY PHYSICIAN Student in an Organized Health Care Education/Training Program
DX: K66.0 Peritoneal adhesions (postprocedural) (postinfection) (principal); I50.42 Chronic combined systolic (congestive) and diastolic (congestive) heart failure; I69.354 Hemiplegia and hemiparesis following cerebral infarction affecting left non-dominant side; A08.4 Viral intestinal infection, unspecified; G20.A1 Parkinson's disease without dyskinesia, without mention of fluctuations; Z95.810 Presence of automatic (implantable) cardiac defibrillator; Z98.61 Coronary angioplasty status; J44.9 Chronic obstructive pulmonary disease, unspecified; K21.9 Gastro-esophageal reflux disease without esophagitis; Z88.0 Allergy status to penicillin; Z88.1 Allergy status to other antibiotic agents; Z88.5 Allergy status to narcotic agent; Z88.2 Allergy status to sulfonamides; Z88.8 Allergy status to other drugs, medicaments and biological substances; Z79.82 Long term (current) use of aspirin; Z79.51 Long term (current) use of inhaled steroids; Z79.899 Other long term (current) drug therapy; Z88.3 Allergy status to other anti-infective agents; Z90.49 Acquired absence of other specified parts of digestive tract; Z91.041 Radiographic dye allergy status; F41.9 Anxiety disorder, unspecified; E78.00 Pure hypercholesterolemia, unspecified; I25.10 Atherosclerotic heart disease of native coronary artery without angina pectoris
CPT/HCPCS: 71046; 74019; 74176; 74177; 80048; 80053; 82378; 83690; 83993; 85025; 85027; 86140; 86301; 87045; 87046; 87070; 87324; 87427; 87449; 87798; 93005; 94640; 96361; 96374; 96375; 99285; Q9967

== ENCOUNTER 2025-01-27 08:56 | Emergency (ER) | payer MEDICARE, OTHER, SELFPAY ==
[2025-01-27 08:58] VITALS: BP 162/94
[2025-01-27 09:10] VITALS: BP 162/94; BMI 33.0
[2025-01-27 09:14] LABS: Hematocrit 40.9 % (37.0-47.0); Hemoglobin 13.2 g/dL (12.0-16.0); Mean Corp Hgb Conc. 32.3 g/dL (33.0-37.0); Mean Corpuscular Volume 91.5 fL (81.0-99.0); Nucleated Red Blood Cells % 0 %; Platelet Count 254 10^3/uL (130-400); Red Cell Dist. Width 13.6 % (11.5-14.5)
[2025-01-27 09:28] LABS: ALT (SGPT) 14 U/L (0-35); AST (SGOT) 20 U/L (14-36); Albumin 4.4 g/dl (3.5-5.0); Alkaline Phosphatase 64 U/L (38-126); Blood Urea Nitrogen 20 mg/dl (7-17); Calcium 9.5 mg/dl (8.4-10.2); Carbon Dioxide 30 mmol/L (22-30); Chloride 105 mmol/L (98-107); Estimated Creatinine Clearance 51 ml/min; Glucose 98 mg/dl (70-99); Magnesium 1.7 mg/dl (1.6-2.3); Potassium 4.1 mmol/L (3.5-5.1); Sodium 139 mmol/L (135-145); Total Protein 7.0 g/dl (6.3-8.2); eGFR > 60.00
[2025-01-27 10:05] VITALS: BP 160/80
[2025-01-27 10:07] LABS: Troponin I < 0.012 ng/ml
--- NOTE | 2025-01-27 10:52 | ED.GENMED ---
History of Present Illness
<Kimberly Hitchcock PA-C - Last Filed: 01/28/25 00:08>
General
Chief Complaint: Chest Pain
Source: patient
Exam Limitations: none
Time Seen by Provider: 01/27/25 09:20
Nursing documentation reviewed up to this point in time: agreed with
History of Present Illness
History of Present Illness:
Patient is a 84 y.o female with hx CHF, HTN, HLD who presents emergency department with multiple complaints today. Patient states that she had a period of left upper chest pain rating into her back with mild shortness of breath last night, which
did resolve prior to bed. However, symptoms returned today prompting visit to the emergency department. Additionally, she reports generalized pain throughout her entire body. She states that she has been urinating at least every hour and is
concerned that she has a UTI.
She denies any known fever, chills, or productive cough. She denies any recent falls or trauma. No headache or changes in mental status. No abdominal pain or vomiting. No lightheadedness, dizziness, or episodes of syncope.
Patient states that she has a Jevon pacemaker which was placed many years ago. She has this followed by cardiology at [facility].
Past History
<Kimberly Hitchcock PA-C - Last Filed: 01/28/25 00:08>
Past History
ED Past Medical History: Arrthythmia
ED Past Surgical History: Bowel resection and Gynecological
Social History
Tobacco: Non-smoker
Alcohol: None
Drug: None
Living: jail
Employment: Not employed
Review of Systems
<Kimberly Hitchcock PA-C - Last Filed: 01/28/25 00:08>
Review of Systems
Allergies reviewed?: Yes
All Other Systems: ROS reviewed and negative except as documented in HPI and ROS
Phy Exam
<Kimberly Hitchcock PA-C - Last Filed: 01/28/25 00:08>
Physical Exam
Physical Exam:
Vitals: Hypertensive, otherwise vital signs stable. Afebrile
General: Patient is frail appearing.
Skin: Warm and dry, no rashes or lesions
Head: Normocephalic, atraumatic
Eyes: Sclera nonicteric. EOMs intact. No nystagmus.
Throat: Protecting airway
Neck: Normal ROM, no cervical spine tenderness, no meningismus
Cardiac: Regular rate and rhythm, no murmurs. Reproducible left upper chest wall tenderness. 2+ palpable radial pulses bilaterally
Pulm: Normal respiratory effort. Lungs clear bilaterally.
Abdomen: Midline surgical scar from umbilicus to pelvis. Abdomen soft and nontender
Extremities: No evidence of cyanosis, edema, or bony tenderness of bilateral lower extremities. She has good range of motion in all joints. She does have somewhat diffuse soft tissue tenderness in both upper and lower extremities.
Neuro: Alert & oriented. Moving all extremities. No focal neurologic deficits.
Psychiatric: Normal affect.
Scores
<Masha Orellana [employer]LAST[employer] PLATER - Last Filed: 01/27/25 22:47>
Heart Score for Chest Pain Patients
STEMI patient?: Not applicable
Course
<Kimberly Hitchcock PA-C - Last Filed: 01/28/25 00:08>
Orders/Labs/Results
Orders:
Orders
01/27/25 08:58
Electrocardiogram (*1) Urgent
Reason for Study: Chest Pain
CXR2 [CR Chest - 2 Views ] Urgent
Comment:
Reason For Exam: chest pain with SOB
01/27/25 08:59
EKG- Treatment ONCE
01/27/25 09:04
Complete Blood Count/With Diff Urgent
Comprehensive Metabolic Panel Urgent
Creatine Phosphokinase Urgent
Comment: ADD ON
Lipase Urgent
Comment: ADD ON
Magnesium Urgent
NT-proBNP Urgent
Troponin I Urgent
01/27/25 10:10
Add On- LAB Urgent
Tests Added?: CPK
Acetaminophen [Tylenol] 650 mg PO NOW STA
01/27/25 10:12
pacemaker [Interrogate Pacemaker- Treatment] ONCE
01/27/25 10:16
COVID-19 Antigen Urgent
Source: Nasal Swab
D-Dimer Urgent
Urinalysis Reflex To Culture Urgent
Date Specimen was Collected: 01/27/25
Time Specimen was Collected: 10:14
Influenza A+B Rapid Molecular Urgent
OFELIA Source: Nasal Swab
Specimen Description:
01/27/25 12:52
Electrocardiogram (*1) Urgent
Reason for Study: Chest Pain
EKG- Treatment ONCE
01/27/25 13:43
Troponin I Urgent
01/27/25 14:28
Add On- LAB Urgent
Tests Added?: lipase
01/27/25 15:26
CT Abd/pel (oral only)-DH Only Urgent
Comment:
Reason For Exam: Epigastric pain
Iohexol [Omnipaque] See Protocol PO NOW STA
01/27/25 17:49
Lactic Acid Q4H
Comment: CANCEL 2nd LACTIC ACID IF 1st LACTIC ACID IS LESS THAN 2
01/27/25 19:19
Acetaminophen [Tylenol] 650 mg PO NOW STA
Abnormal Lab Results
01/27/25 01/27/25
09:04 10:16
MCHC 32.3 L g/dL
(33.0-37.0)
Absolute Monos (auto) 0.7 H 10^3/uL
(0.1-0.6)
Lymphocytes % 15.6 L %
(20.5-51.1)
D-Dimer 0.62 H ug/mlFEU
(0.00-0.50)
BUN 20 H mg/dl
(717)
01/27/25 09:04
01/27/25 09:04
Vital Signs
Initial and Last Documented VS:
Initial Vital Signs
Pulse Resp BP Pulse Ox
86 24 162/94 93
01/27/25 08:58 01/27/25 08:58 01/27/25 08:58 01/27/25 08:58
Last Documented Vital Signs
Temp Pulse Resp BP Pulse Ox
98.5 F 91 20 110/94 96
01/27/25 17:58 01/27/25 20:15 01/27/25 17:58 01/27/25 17:58 01/27/25 17:58
<Nehemias Spencer, DO - Last Filed: 01/27/25 15:11>
Orders/Labs/Results
Orders:
Orders
01/27/25 08:58
Electrocardiogram (*1) Urgent
Reason for Study: Chest Pain
CXR2 [CR Chest - 2 Views ] Urgent
Comment:
Reason For Exam: chest pain with SOB
01/27/25 08:59
EKG- Treatment ONCE
01/27/25 09:04
Complete Blood Count/With Diff Urgent
Comprehensive Metabolic Panel Urgent
Creatine Phosphokinase Urgent
Comment: ADD ON
Lipase Urgent
Comment: ADD ON
Magnesium Urgent
NT-proBNP Urgent
Troponin I Urgent
01/27/25 10:10
Add On- LAB Urgent
Tests Added?: CPK
Acetaminophen [Tylenol] 650 mg PO NOW STA
01/27/25 10:12
pacemaker [Interrogate Pacemaker- Treatment] ONCE
01/27/25 10:16
COVID-19 Antigen Urgent
Source: Nasal Swab
D-Dimer Urgent
Urinalysis Reflex To Culture Urgent
Date Specimen was Collected: 01/27/25
Time Specimen was Collected: 10:14
Influenza A+B Rapid Molecular Urgent
OFELIA Source: Nasal Swab
Specimen Description:
01/27/25 12:52
Electrocardiogram (*1) Urgent
Reason for Study: Chest Pain
EKG- Treatment ONCE
01/27/25 13:43
Troponin I Urgent
01/27/25 14:28
Add On- LAB Urgent
Tests Added?: lipase
01/27/25 15:26
CT Abd/pel (oral only)-DH Only Urgent
Comment:
Reason For Exam: Epigastric pain
Iohexol [Omnipaque] See Protocol PO NOW STA
01/27/25 17:49
Lactic Acid Q4H
Comment: CANCEL 2nd LACTIC ACID IF 1st LACTIC ACID IS LESS THAN 2
01/27/25 19:19
Acetaminophen [Tylenol] 650 mg PO NOW STA
Abnormal Lab Results
01/27/25 01/27/25
09:04 10:16
MCHC 32.3 L g/dL
(33.0-37.0)
Absolute Monos (auto) 0.7 H 10^3/uL
(0.1-0.6)
Lymphocytes % 15.6 L %
(20.5-51.1)
D-Dimer 0.62 H ug/mlFEU
(0.00-0.50)
BUN 20 H mg/dl
(7-17)
01/27/25 09:04
01/27/25 09:04
Vital Signs
Initial and Last Documented VS:
Initial Vital Signs
Pulse Resp BP Pulse Ox
86 24 162/94 93
01/27/25 08:58 01/27/25 08:58 01/27/25 08:58 01/27/25 08:58
Last Documented Vital Signs
Temp Pulse Resp BP Pulse Ox
98.5 F 91 20 110/94 96
01/27/25 17:58 01/27/25 20:15 01/27/25 17:58 01/27/25 17:58 01/27/25 17:58
<Masha Orellana, P[employer] PLATER - Last Filed: 01/27/25 22:47>
Orders/Labs/Results
Orders:
Orders
01/27/25 08:58
Electrocardiogram (*1) Urgent
Reason for Study: Chest Pain
CXR2 [CR Chest - 2 Views ] Urgent
Comment:
Reason For Exam: chest pain with SOB
01/27/25 08:59
EKG- Treatment ONCE
01/27/25 09:04
Complete Blood Count/With Diff Urgent
Comprehensive Metabolic Panel Urgent
Creatine Phosphokinase Urgent
Comment: ADD ON
Lipase Urgent
Comment: ADD ON
Magnesium Urgent
NT-proBNP Urgent
Troponin I Urgent
01/27/25 10:10
Add On- LAB Urgent
Tests Added?: CPK
Acetaminophen [Tylenol] 650 mg PO NOW STA
01/27/25 10:12
pacemaker [Interrogate Pacemaker- Treatment] ONCE
01/27/25 10:16
COVID-19 Antigen Urgent
Source: Nasal Swab
D-Dimer Urgent
Urinalysis Reflex To Culture Urgent
Date Specimen was Collected: 01/27/25
Time Specimen was Collected: 10:14
Influenza A+B Rapid Molecular Urgent
OFELIA Source: Nasal Swab
Specimen Description:
01/27/25 12:52
Electrocardiogram (*1) Urgent
Reason for Study: Chest Pain
EKG- Treatment ONCE
01/27/25 13:43
Troponin I Urgent
01/27/25 14:28
Add On- LAB Urgent
Tests Added?: lipase
01/27/25 15:26
CT Abd/pel (oral only)-DH Only Urgent
Comment:
Reason For Exam: Epigastric pain
Iohexol [Omnipaque] See Protocol PO NOW STA
01/27/25 17:49
Lactic Acid Q4H
Comment: CANCEL 2nd LACTIC ACID IF 1st LACTIC ACID IS LESS THAN 2
01/27/25 19:19
Acetaminophen [Tylenol] 650 mg PO NOW STA
Abnormal Lab Results
01/27/25 01/27/25
09:04 10:16
MCHC 32.3 L g/dL
(33.0-37.0)
Absolute Monos (auto) 0.7 H 10^3/uL
(0.1-0.6)
Lymphocytes % 15.6 L %
(20.5-51.1)
D-Dimer 0.62 H ug/mlFEU
(0.00-0.50)
BUN 20 H mg/dl
(7-17)
01/27/25 09:04
01/27/25 09:04
Vital Signs
Initial and Last Documented VS:
Initial Vital Signs
Pulse Resp BP Pulse Ox
86 24 162/94 93
01/27/25 08:58 01/27/25 08:58 01/27/25 08:58 01/27/25 08:58
Last Documented Vital Signs
Temp Pulse Resp BP Pulse Ox
98.5 F 91 20 110/94 96
01/27/25 17:58 01/27/25 20:15 01/27/25 17:58 01/27/25 17:58 01/27/25 17:58
<Kimberly Hitchcock PA-C - Last Filed: 01/28/25 00:08>
MDM/Problems Addressed
Differential Diagnosis Includes:
Not limited to: Muscle strain/spasm, ACS, PE, pleural effusion, pneumonia, viral myalgias, neuropathic pain, etc.
MDM/Problems Addressed:
84-year-old female presenting with concerns of left-sided chest discomfort radiating to back/left shoulder with overall generalized pain. Reports mild shortness of breath last night however resolved. No fever, recent fall/trauma. No productive
cough, or lower extremity swelling. Patient hypertensive on arrival with otherwise stable vital signs. She is afebrile. Physical exam as above. She appears in no distress however somewhat anxious appearing. Lungs clear. No bony tenderness or
evidence of extremity injuries. Abdomen soft and nontender. She is moving all extremities without any focal neurologic deficits.
Differential broad. Will perform cardiac workup including labs, cardiac enzymes, D-dimer, chest x-ray, EKG. She does not appear volume overloaded on exam. Patient's pain possibly myalgias from underlying viral illness. No evidence of bony
tenderness or infectious process. Will check viral studies, UA. Will give Tylenol and reassess.
Update: Very difficult time obtaining IV access on patient which delayed care. However�lab results, CBC and CMP without any clinically significant abnormalities. BNP of 309. Serial troponins undetectable with nonischemic EKGs. D-dimer
age-adjusted normal. Chest x-ray fine. Viral studies negative and urinalysis without any evidence of infection. Patient has remained hemodynamic stable and in no distress. Cardiac workup unremarkable in ED. No evidence of acute cardiac
emergency.
Update: Patient began complaining of epigastric abdominal pain. Her abdomen is soft however diffusely tender in upper abdomen. She has history of multiple bowel obstructions. In light of this�Will obtain CT scan abdomen/pelvis to rule out acute
intra-abdominal pathology. Plan will be for discharge home if CT scan negative. Will add on lipase and lactic acid. She remains resting in bed comfortably and in no distress.
Will get CT scan with oral contrast only as patient has tolerated this in the past without reaction. 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
I did call and speak to patient's daughter and reviewed workup in emergency department thus far including negative cardiac workup. We were unable to interrogate patient's pacemaker however she will contact patient's mutuel department manager at [facility] and
discuss if interrogation needed. No evidence here to suggest underlying arrhythmia.
She is aware of plan for CT scan to ensure no intra-abdominal process and discharge home if negative. All questions answered.
Case signed out to MARIAH Ryan pending CT scan.
Chronic conditions affecting care:
CHF, hypertension, history of multiple bowel obstructions
Acute Exacerbation and/or Progression of Chronic Illness:
N/A
<Masha Orellana NP - Last Filed: 01/27/25 22:47>
MDM/Problems Addressed
MDM/Problems Addressed:
84-year-old female presenting with concerns of left-sided chest discomfort radiating to back/left shoulder with overall generalized pain. Reports mild shortness of breath last night however resolved. No fever, recent fall/trauma. No productive
cough, or lower extremity swelling. Patient hypertensive on arrival with otherwise stable vital signs. She is afebrile. Physical exam as above. She appears in no distress however somewhat anxious appearing. Lungs clear. No bony tenderness or
evidence of extremity injuries. Abdomen soft and nontender. She is moving all extremities without any focal neurologic deficits.
Differential broad. Will perform cardiac workup including labs, cardiac enzymes, D-dimer, chest x-ray, EKG. She does not appear volume overloaded on exam. Patient's pain possibly myalgias from underlying viral illness. No evidence of bony
tenderness or infectious process. Will check viral studies, UA. Will give Tylenol and reassess.
Update: Very difficult time obtaining IV access on patient which delayed care. However�lab results, CBC and CMP without any clinically significant abnormalities. BNP of 309. Serial troponins undetectable with nonischemic EKGs. D-dimer
age-adjusted normal. Chest x-ray fine. Viral studies negative and urinalysis without any evidence of infection. Patient has remained hemodynamic stable and in no distress. Cardiac workup unremarkable in ED. No evidence of acute cardiac
emergency.
Update: Patient began complaining of epigastric abdominal pain. Her abdomen is soft however diffusely tender in upper abdomen. She has history of multiple bowel obstructions. In light of this�Will obtain CT scan abdomen/pelvis to rule out acute
intra-abdominal pathology. Plan will be for discharge home if CT scan negative. Will add on lipase and lactic acid. She remains resting in bed comfortably and in no distress.
Will get CT scan with oral contrast only as patient has tolerated this in the past without reaction. 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
I did call and speak to patient's daughter and reviewed workup in emergency department thus far including negative cardiac workup. We were unable to interrogate patient's pacemaker however she will contact patient's mutuel department manager at [facility] and
discuss if interrogation needed. No evidence here to suggest underlying arrhythmia.
She is aware of plan for CT scan to ensure no intra-abdominal process and discharge home if negative. All questions answered.
Case signed out to MARIAH Ryan pending CT scan.
7:00 PM:
CAT scan abdomen pelvis with p.o. contrast radiology report read: IMPRESSION:
No CT evidence for an acute inflammatory process within the limitations of the lack of intravenous contrast.
Previous bowel resections. Oral contrast passes normally through the residual small bowel and colon without evidence for a bowel obstruction.
Patient is in no distress, she is requesting Tylenol for headache. She is awaiting ambulance [facility] back [facility]. I contacted her son and updated him on the test results and discharge.
Is eating sandwich and crackers.
<Kimberly Hitchcock PA-C - Last Filed: 01/28/25 00:08>
*Radiology
Radiology exam reviewed: preliminary read by ED provider (Chest x-ray reviewed by ak-no acute findings) and radiology read reviewed
*Pulse Oximetry
SaO2: 95
Oxygen Mode of Delivery: Room air
Patient hypoxic: no
*EKG
Interpreted by ED Provider?: Yes
EKG Intrepretation Date: 01/27/25
Interpretation: abnormal
Comparison EKG: changes noted
Heart Rate: 93
Rate: normal
Rhythm: av sequential
[place]: left axis deviation
Interval: normal QT interval
QRS Pattern: normal QRS
Ischemia: no ischemia
*Tape Weaver Interpretation
Rate: normal
Interpretation: normal
Heart Rate: 86
Rhythm: sinus
*Critical Care Note
Total Time (30-74mins, 75-104mins- exclusive of procedures): Not Applicable
ED Attending Note
<Kimberly Hitchcock PA-C - Last Filed: 01/28/25 00:08>
-
Portions of this chart may have been created with voice recognition software.� Occasional wrong word or��sound alike� substitutions may have occurred due to the inherent limitations of voice recognition software.
<Nehemias Spencer DO - Last Filed: 01/27/25 15:11>
ED Attending Note
Patient seen and examined by attending physician: Yes
ED Attending Note:
I have reviewed and agree with history and treatment plan by Kimberly Hitchcock PA-C. My exam revealed 84-year-old female appearing anxious, but no distress. Patient has mild epigastric tenderness with abdominal scarring. Lungs clear. Patient does
have chronic abdominal pain. Will evaluate to ensure she does not have bowel obstruction. Chest x-ray normal labs normal otherwise. CT abdomen pelvis pending. If negative patient will be discharged home
Discharge Plan
Departure
Patient Disposition: Alf/SNF
Date of Disposition: 01/27/25
Time of Disposition: 19:07
Condition: Good
Discharge Problem:
Abdominal pain
Prescriptions:
No Action
carvedilol 6.25 MG tablet
3.125 mg PO BID
aspirin 81 MG tablet,delayed release (DR/EC)
81 mg PO DAILY
rosuvastatin [Crestor] 40 MG tablet
20 mg PO HS
PreserVision AREDS 1 CAP capsule
1 cap PO BID
acetaminophen [Tylenol] 325 mg Tablet
650 mg PO Q6HPRN PRN (Reason: mild pain)
ipratropium-albuterol 0.5 mg-3 mg(2.5 mg base)/3 mL Solution For Nebulization
3 ml INHALATION R Q6HPRN PRN (Reason: sob)
ipratropium-albuterol 0.5 mg-3 mg(2.5 mg base)/3 mL Solution For Nebulization
3 ml INHALATION R TID
polyethylene glycol 3350 [Miralax] 17 gram Powder In Packet
17 g PO DAILY
benzonatate 200 mg Capsule
200 mg PO TIDPRN PRN (Reason: cough)
therapeutic multivitamin Tablet
1 tab PO DAILY
alprazolam [Xanax] 0.5 mg Tablet
0.5 mg PO TID
methenamine hippurate 1 gram Tablet
1 g PO BID
citalopram [Celexa] 20 mg Tablet
20 mg PO DAILY
famotidine [Pepcid] 20 mg Tablet
40 mg PO HS
ascorbic acid (vitamin C) [Vitamin C] 500 mg Tablet
500 mg PO DAILY
ferrous sulfate 325 mg (65 mg iron) Tablet
325 mg PO DAILY
carbidopa-levodopa 10-100 mg Tablet
1 tab PO HS
carbidopa-levodopa 10-100 mg Tablet
2 tab PO BID
Rx Instructions:
Take 2 tabs orally at 0800 and 1200
Fleet Enema 19-7 gram/118 mL Enema
118 ml WI DAILYPRN PRN (Reason: if no bm aftr dulolcax)
docusate sodium [Colace] 100 mg Capsule
100 mg PO BID
cranberry 450 mg Tablet
450 mg PO DAILY
Blink Tears 0.25 % Drops
1 drp ophthalmic (eye) QID
folic acid 400 mcg Tablet
0.4 mg PO DAILY
acetaminophen [Tylenol Extra Strength] 500 mg Tablet
1,000 mg PO BID
magnesium hydroxide [Milk of Magnesia] 400 mg/5 mL Suspension
2,400 mg PO [id number] PRN (Reason: constipation)
bisacodyl [Dulcolax (bisacodyl)] 10 mg Suppository
10 mg WI DAILYPRN PRN (Reason: if no bm aftr mom)
budesonide 0.5 mg/2 mL Suspension For Nebulization
0.5 mg INHALATION R BID
alum-mag hydroxide-simeth [Maalox Maximum Strength] 400-400-40 mg/5 mL Suspension
30 ml PO [id number] PRN (Reason: heartburn)
thiamine HCl (vitamin B1) 50 mg Tablet
50 mg PO DAILY
guaifenesin [Mucus Relief] 400 mg Tablet
400 mg PO [id number] PRN (Reason: cough)
quetiapine [Seroquel] 25 mg Tablet
25 mg PO BID
estradiol 0.01 % (0.1 mg/gram) Cream
1 appful VAGINAL HS
Rx Instructions:
every Wednesday and Wednesday
OcuSoft Lid Scrub Pads, Medicated
1 pad TOPICAL BID
mirabegron 25 mg Tablet Extended Release 24 Hr
25 mg PO HS
mirabegron [Myrbetriq] 25 mg Tablet Extended Release 24 Hr
25 mg PO DAILY
Referrals:
UNKNOWN - PT DOES,NOT KNOW [Family Provider]
Interventions
Interventions:
*Risk Screen - Suicide Last Done: 01/27/25 09:10
*General Assessment Last Done: 01/27/25 09:10
*Neglect/Abuse Screening Last Done: 01/27/25 09:10
*ED- Fall Risk Assessment Last Done: 01/27/25 09:10
*ED COVID-19 Vaccine History Last Done: 01/27/25 09:10
*Nursing Disposition Last Done: 01/27/25 21:42
ED- Cardiac Assessment Last Done: 01/27/25 09:10
Discharge Date and Time
Discharge Date/Time: 01/27/25 21:43
Print Language: BOLIVIAN
[2025-01-27 10:56] LABS: Urine Character Clear (Clear)
[2025-01-27 11:07] LABS: COVID-19 Antigen Negative (Negative)
--- NOTE | 2025-01-27 11:52 | EDRN ---
IV team currently at the pts bedside placing a midline
[2025-01-27 12:48] LABS: D-Dimer 0.62 ug/mlFEU (0.00-0.50)
[2025-01-27 13:52] VITALS: BP 131/85
--- NOTE | 2025-01-27 14:06 | VATNOTE ---
Called to place IV line for ct angio to rule out pulmonary embolism. Attempted to place peripheral IV sites x2 unsuccessfully. Then attempted to place midline catheter in both arms x2 unsuccessfully. Able to cannulate vessel but unable to advance
guidewire. Primary care RN made aware.
[2025-01-27 14:19] LABS: Troponin I < 0.012 ng/ml
[2025-01-27] MEDS: OMNIPAQUE 50 ML PO (15:45)
[2025-01-27 15:59] LABS: Lipase 157 U/L (23-300)
[2025-01-27 17:50] VITALS: BP 110/94
[2025-01-27 17:58] VITALS: BP 110/94
--- NOTE | 2025-01-27 18:13 | EDRN ---
ishmael was ordered for the pt, this RN notified Dr. Hernandez that the pt is on Bipap therefore this RN cannot give anything POIshmael discontinued, family at the pts bedside and Dr. Rehman updating the pts family
[2025-01-27] MEDS: TYLENOL 650 MG PO (19:51)
== END 2025-01-27 21:43 ==
LOC: EMR 08:56
PROVIDERS: Physician Assistant; EMERGENCY PHYSICIAN Emergency Medicine
DX: R10.9 Unspecified abdominal pain (principal); I11.0 Hypertensive heart disease with heart failure; I50.9 Heart failure, unspecified; E78.5 Hyperlipidemia, unspecified; Z95.0 Presence of cardiac pacemaker; G89.29 Other chronic pain; Z90.49 Acquired absence of other specified parts of digestive tract
CPT/HCPCS: 99285; 71046; 74176; 80053; 81003; 82550; 83605; 83690; 83735; 83880; 84484; 85025; 85379; 87502; 87811; 93005